=== PATIENT | female | born 1985 | race Caucasian/White ===

== ENCOUNTER → 2020-07-25 15:04 | Outpatient (BNVA) | payer OTHER, SELFPAY | PROVIDERS: PCP Nurse Practitioner Family; Referring Provider Nurse Practitioner Family; Visit Provider Nurse Practitioner Family | DX: K51.90 Ulcerative colitis, unspecified, without complications (principal); Z79.899 Other long term (current) drug therapy; Z98.890 Other specified postprocedural states | CPT/HCPCS: 99214 ==

== ENCOUNTER → 2021-01-30 12:59 | Outpatient (BNVA) | payer OTHER, SELFPAY | PROVIDERS: PCP Nurse Practitioner Family; Visit Provider Nurse Practitioner ==

== ENCOUNTER 2021-05-01 08:36 | Outpatient (REF) | payer OTHER, SELFPAY ==
[2021-05-01 11:25] LABS: MANUAL DIFF FLAG NO
[2021-05-01 11:35] LABS: Basophils Percent Auto 0.5 % (0-2); Eosinophils Absolute Auto 0.1 X10*3/uL (0.0-0.4); Eosinophils Percent Auto 2.1 % (0-4); Hematocrit 39.1 % (37-47); Hemoglobin 12.8 g/dl (12.0-16.0); Imm Gran Abs Auto 0.05 X10*3/uL (0.00-0.03); Imm Gran Pct Auto 0.8 % (0.0-0.4); Lymphocytes Absolute Auto 1.5 X10*3/uL (1.2-4.9); Lymphocytes Percent Auto 24.5 % (20-40); Mean Corpuscular HGB Conc 32.7 g/dl (31.0-35.0); Mean Corpuscular Hemoglobin 27.2 pg (27.0-33.0); Mean Corpuscular Volume 83.2 fL (80-98); Mean Platelet Volume 9.6 fL (9.4-12.3); Monocytes Absolute Auto 0.5 X10*3/uL (0.1-1.2); Monocytes Percent Auto 7.9 % (2-11); Neutrophils Percent Auto 64.2 % (45-73); Platelet Count 332 X10*3/uL (160-400); Red Cell Distribution Width 14.1 % (11.0-16.0); White Blood Count 6.2 X10*3/uL (4.8-10.8)
[2021-05-01 11:56] LABS: Alanine Aminotransferase 22 U/L (0-31); Anion Gap 13 (12-20); Aspartate Amino Transferase 22 U/L (5-31); Blood Urea Nitrogen 10 mg/dL (9-16); Calcium 8.9 mg/dL (8.4-10.2); Carbon Dioxide 25 mmol/L (22-29); Chloride 106 mmol/L (96-108); Cholesterol 206 mg/dL; Estimated Glomerular Filt Rate > 60; Glucose Fasting 128 mg/dL (60-99); HDL Cholesterol 52 mg/dL; LDL Cholesterol Calculated 139 mg/dl; Sodium 139 mmol/L (135-145); Triglycerides 75 mg/dL
[2021-05-01 12:00] LABS: TSH reflex Free T4 1.12 uIU/mL (0.32-4.0)
== END 2021-05-01 08:37 | disposition home or self-care (01) ==
LOC: HO.HMGCLDS 08:36
PROVIDERS: PCP Internal Medicine; Visit Provider Internal Medicine
DX: Z00.01 Encounter for general adult medical examination with abnormal findings (principal); E66.01 Morbid (severe) obesity due to excess calories; K51.90 Ulcerative colitis, unspecified, without complications; I10 Essential (primary) hypertension
CPT/HCPCS: 36415; 80048; 80061; 84443; 84450; 84460; 85025

== ENCOUNTER 2021-05-19 08:54 | Outpatient (REF) | payer OTHER, SELFPAY ==
[2021-05-19 11:43] LABS: Estimated Average Glucose 123 mg/dL; Hemoglobin A1C 136.5053 umol/L; Hemoglobin A1c % 5.9 %
== END 2021-05-19 08:55 | disposition home or self-care (01) ==
LOC: HO.HMGCLDS 08:54
PROVIDERS: Visit Provider Nurse Practitioner Family
DX: R73.01 Impaired fasting glucose (principal)
CPT/HCPCS: 36415; 83036

== ENCOUNTER → 2021-06-20 14:06 | Outpatient (BNVA) | payer OTHER, SELFPAY | PROVIDERS: PCP Internal Medicine; Referring Provider Internal Medicine; Visit Provider Physician Assistant | DX: Z01.818 Encounter for other preprocedural examination (principal); E66.01 Morbid (severe) obesity due to excess calories; K51.90 Ulcerative colitis, unspecified, without complications; Z68.42 Body mass index [BMI] 45.0-49.9, adult | CPT/HCPCS: 99202 ==

== ENCOUNTER 2021-07-03 07:50 | Outpatient (REF) | payer OTHER, SELFPAY ==
[2021-07-03 08:38] LABS: MANUAL DIFF FLAG NO
[2021-07-03 08:50] LABS: Basophils Percent Auto 0.5 % (0-2); Eosinophils Absolute Auto 0.1 X10*3/uL (0.0-0.4); Eosinophils Percent Auto 1.7 % (0-4); Hematocrit 37.9 % (37-47); Hemoglobin 12.5 g/dl (12.0-16.0); Imm Gran Abs Auto 0.04 X10*3/uL (0.00-0.03); Imm Gran Pct Auto 0.6 % (0.0-0.4); Lymphocytes Absolute Auto 1.4 X10*3/uL (1.2-4.9); Lymphocytes Percent Auto 21.2 % (20-40); Mean Corpuscular Hemoglobin 27.5 pg (27.0-33.0); Mean Corpuscular Volume 83.5 fL (80-98); Mean Platelet Volume 9.6 fL (9.4-12.3); Monocytes Absolute Auto 0.6 X10*3/uL (0.1-1.2); Neutrophils Absolute Auto 4.4 X10*3/uL (2.0-8.3); Platelet Count 311 X10*3/uL (160-400); Red Blood Count 4.54 X10*6/uL (4.20-5.50); Red Cell Distribution Width 13.8 % (11.0-16.0); White Blood Count 6.6 X10*3/uL (4.8-10.8)
[2021-07-03 09:02] LABS: Alanine Aminotransferase 21 U/L (0-31); Albumin Level 4.2 g/dL (3.5-5.0); Alkaline Phosphatase 81 U/L (39-117); Anion Gap 10 (12-20); Aspartate Amino Transferase 15 U/L (5-31); Bilirubin Total 0.4 mg/dL (0.0-1.0); Blood Urea Nitrogen 18 mg/dL (9-16); C Reactive Protein 0.97 mg/dL (< or = 0.50); Calcium 9.2 mg/dL (8.4-10.2); Carbon Dioxide 24 mmol/L (22-29); Chloride 109 mmol/L (96-108); Cholesterol 168 mg/dL; Estimated Glomerular Filt Rate > 60; Glucose Random 118 mg/dL (60-115); HDL Cholesterol 44 mg/dL; Iron 45 mcg/dL (30-160); LDL Cholesterol Calculated 109 mg/dl; Percent Iron Saturation 13 % (15-50); Sodium 138 mmol/L (135-145); Total Iron Binding Capacity 353 mcg/dL (228-428); Total Protein 6.8 g/dL (6.5-8.0); Triglycerides 79 mg/dL; Unsaturated Iron Binding 308 ug/dL
[2021-07-03 09:22] LABS: Estimated Average Glucose 117 mg/dL; Hemoglobin A1c % 5.7 %
[2021-07-03 09:27] LABS: TSH reflex Free T4 1.92 uIU/mL (0.32-4.0); Vitamin D 25-OH Total 23.4 ng/mL (>30)
[2021-07-03 09:34] LABS: Ferritin 33 ng/mL (10-122)
[2021-07-03 09:37] LABS: Folate 7.1 ng/mL (> or = 4.0); Vitamin B12 598 pg/mL (200-900)
[2021-07-05 06:11] LABS: Insulin Level Total 11.6 uIU/mL
[2021-07-05 11:01] LABS: Calcium (PTHI) 9.2 mg/dL (8.6-10.2); PTHI 35 pg/mL (14-64)
[2021-07-06 06:26] LABS: Zinc 83 mcg/dL (60-130)
[2021-07-08 13:46] LABS: Vitamin B1 8 nmol/L (8-30)
[2021-07-09 15:57] LABS: Vitamin A 45 mcg/dL (38-98)
== END 2021-07-03 07:51 | disposition home or self-care (01) ==
LOC: HO.LAB 07:50
PROVIDERS: Visit Provider Physician Assistant
DX: Z01.818 Encounter for other preprocedural examination (principal); E66.01 Morbid (severe) obesity due to excess calories
CPT/HCPCS: 36415; 80053; 80061; 82306; 82607; 82728; 82746; 83036; 83525; 83540; 83970; 84425; 84443; 84590; 84630; 85025; 86140

== ENCOUNTER → 2021-07-06 07:56 | Outpatient (REF) | payer OTHER, SELFPAY ==
--- NOTE | ~2021-07-06 | XR_ITS ---
EXAMINATION: XR CHEST CLINICAL INFORMATION: Obesity COMPARISON: None TECHNIQUE: 2 views of the chest were obtained. FINDINGS: No significant abnormality is noted involving the heart, lungs, mediastinum, bony thorax or soft tissues. XR/XR chest 2V IMPRESSION: Unremarkable examination.
--- NOTE | 2021-07-06 08:00 | ECG_ITS ---
Test Reason : e66.01 Blood Pressure : / mmHG Vent. Rate : 069 BPM Atrial Rate : 069 BPM P-R Int : 208 ms QRS Dur : 078 ms QT Int : 368 ms P-R-T Axes : 059 005 032 degrees QTc Int : 394 ms Normal sinus rhythm Normal ECG No previous ECGs available Referred By: Anahi Miles Electronically Signed By:DIANE JOHNSON
== END ==
LOC: HO.CARD 07:56
PROVIDERS: PCP Internal Medicine; Visit Provider Physician Assistant
DX: Z01.818 Encounter for other preprocedural examination (principal); E66.01 Morbid (severe) obesity due to excess calories
CPT/HCPCS: 71046; 93005

== ENCOUNTER 2021-07-17 | Outpatient (REF) | payer OTHER, SELFPAY ==
[2021-07-18 11:05] LABS: H Pylori Breath Test Negative (Negative)
== END 2021-07-17 00:01 | disposition home or self-care (01) ==
LOC: HO.LNP
PROVIDERS: Visit Provider Physician Assistant
DX: Z01.818 Encounter for other preprocedural examination (principal); E66.01 Morbid (severe) obesity due to excess calories
CPT/HCPCS: 83013

== ENCOUNTER → 2021-07-17 08:20 | Outpatient (BNVA) | payer OTHER, SELFPAY | PROVIDERS: PCP Nurse Practitioner Family; Visit Provider Nurse Practitioner | DX: Z12.11 Encounter for screening for malignant neoplasm of colon (principal); K51.90 Ulcerative colitis, unspecified, without complications; E66.01 Morbid (severe) obesity due to excess calories; E73.9 Lactose intolerance, unspecified | CPT/HCPCS: 99211 ==

== ENCOUNTER → 2021-07-19 08:07 | Outpatient (BNVA) | payer OTHER, SELFPAY | PROVIDERS: PCP Internal Medicine; Visit Provider Dietitian, Registered | DX: E66.01 Morbid (severe) obesity due to excess calories (principal); Z68.42 Body mass index [BMI] 45.0-49.9, adult | CPT/HCPCS: 97802 ==

== ENCOUNTER → 2021-07-20 08:03 | Outpatient (BNVA) | payer OTHER, SELFPAY | PROVIDERS: PCP Internal Medicine; Visit Provider Surgery ==

== ENCOUNTER 2021-07-31 08:01 | Outpatient (REF) | payer OTHER, SELFPAY ==
--- NOTE | ~2021-07-31 | US_ITS ---
EXAMINATION: US COMPLETE ABDOMEN WITH LIVER ELASTOGRAPHY CLINICAL INFORMATION: Morbid obesity COMPARISON: May 01, 2012 TECHNIQUE: Real-time imaging of the abdominal viscera. Noninvasive ultrasound liver fibrosis assessment is performed using Sumanth ElastPQ point quantification shear wave elastography (pSWE) with a C5-2 MHz transducer. Multiple elastography samples are obtained. FINDINGS: PANCREAS: Normal. The visualized pancreatic head and body are normal in appearance. The remainder of the pancreas is obscured from visualization by the overlying bowel gas. ABDOMINAL AORTA: The proximal, middle, and distal aortic segments are normal in caliber. INFERIOR VENA CAVA: Visualized portions are normal. LIVER: Normal. The liver demonstrates normal size, contour and echogenicity. No focal lesion or intrahepatic biliary duct dilatation. The right lobe measures 16.9 cm in length. The left lobe measures 12.2 cm in length. Portal flow is hepatopedal Shear wave liver elastography median stiffness is 1.48 m/s (reference: normal median stiffness is 1.3 m/s or less). IQR/median stiffness to assess sampling precision is 0.19 (reference: good quality data set is IQR/median stiffness of 0.15 or less). GALLBLADDER: Normal. The gallbladder is physiologically distended without evidence of stones, sludge, polyps, wall thickening or pericholecystic fluid. COMMON BILE DUCT: Normal in caliber measuring 0.3 cm in diameter. RIGHT KIDNEY: Normal. No hydronephrosis. No renal calculi or focal parenchymal lesions. The kidney measures 11.4 cm in maximum dimension. Previously noted right lower pole 3 mm echogenic focus is not appreciated on provided imaging. LEFT KIDNEY: Normal. No hydronephrosis. No renal calculi or focal parenchymal lesions. The kidney measures 10.7 cm in maximum dimension. SPLEEN: Normal. The spleen measures 10.0 cm in maximum dimension. FREE FLUID: None. US/US abdomen comp w elastography IMPRESSION: 1. No significant ultrasound abnormality appreciated. 2. Liver elastography: Although measurements appear to rule out compensated advanced chronic liver disease, there is statistical variability of the sampling which decreases accuracy. REFERENCE: Society of Radiologists in Ultrasound Liver Stiffness Thresholds (2019): LIVER STIFFNESS THRESHOLDS: *Liver Stiffness equal or less than 1.3 m/s: High probability of being normal. *Liver Stiffness less than 1.7 m/s: In the absence of other known clinical signs, rules out compensated advanced chronic liver disease. *Liver Stiffness 1.7-2.1 m/s: Suggestive of compensated advanced chronic liver disease but need further test for confirmation. *Liver Stiffness over 2.1 m/s: Rules in compensated advanced chronic liver disease. *Liver Stiffness over 2.4 m/s: Suggestive of clinically significant portal hypertension. QUALITY OF DATA SET: *IQR/Median value equal or less than 0.15 implies a quality data set. *IQR/Median value over 0.15 implies a poor quality data set. SIGNIFICANT CHANGE FROM PRIOR EXAM: Significant change if liver stiffness measurement is 10% or greater from prior exam. OTHER CONSIDERATIONS: The stage of liver fibrosis may be overestimated in the setting of acute hepatitis, liver inflammation, elevated liver function tests, hepatic vascular congestion, obstructive cholestasis, non-fasting state, and infiltrative diseases such as amyloidosis and lymphoma. In some patients with NAFLD, the liver stiffness thresholds for compensated advanced chronic liver disease may be lower. In causes other than viral hepatitis and NAFLD, liver stiffness thresholds are not well established.
--- NOTE | ~2021-07-31 | FL_ITS ---
EXAMINATION: XR GI SERIES CLINICAL INFORMATION: Morbid/severe obesity due to excess calories. COMPARISON: None TECHNIQUE: Routine upper GI air-contrast study was performed in upright and lying position. FINDINGS: Following oral administration of thick barium and effervescent granules, there is normal propagation of bolus from the oral cavity through the pharynx, esophagus into stomach without any evidence of obstruction, narrowing or stricture. On placing patient supine and prone lying, there is no gastroesophageal reflux or hiatal hernia. The course, caliber and peristalsis of the stomach, duodenal bulb and the sweep are normal. The mucosal pattern of the stomach is normal. FLUOROSCOPY TIME: 1.4 minutes DOSE AREA PRODUCT: 28.215 uGy-m2 (microgray-meter squared) FL/FL upper GI series IMPRESSION: Unremarkable upper GI air-contrast study.
== END 2021-07-31 08:02 | disposition home or self-care (01) ==
LOC: HO.US 08:01
PROVIDERS: Visit Provider Surgery
DX: Z01.818 Encounter for other preprocedural examination (principal); E66.01 Morbid (severe) obesity due to excess calories; K21.9 Gastro-esophageal reflux disease without esophagitis
CPT/HCPCS: 74240; 76705; 76981

== ENCOUNTER → 2021-08-16 08:04 | Outpatient (BNVA) | payer OTHER, SELFPAY | PROVIDERS: PCP Internal Medicine; Referring Provider Surgery; Visit Provider Dietitian, Registered | DX: E66.9 Obesity, unspecified (principal); Z68.42 Body mass index [BMI] 45.0-49.9, adult | CPT/HCPCS: 97803 ==

== ENCOUNTER → 2021-08-17 08:16 | Outpatient (BNVA) | payer OTHER, SELFPAY | PROVIDERS: PCP Internal Medicine; Visit Provider Surgery ==

== ENCOUNTER → 2021-09-17 08:14 | Outpatient (BNVA) | payer OTHER, SELFPAY | PROVIDERS: PCP Internal Medicine; Visit Provider Surgery ==

== ENCOUNTER → 2021-09-28 08:21 | Outpatient (BNVA) | payer OTHER, SELFPAY | PROVIDERS: PCP Internal Medicine; Visit Provider Dietitian, Registered ==

== ENCOUNTER → 2021-10-01 08:04 | Outpatient (BNVA) | payer OTHER, SELFPAY | PROVIDERS: PCP Internal Medicine; Referring Provider Surgery; Visit Provider Dietitian, Registered | DX: E66.01 Morbid (severe) obesity due to excess calories (principal); Z68.42 Body mass index [BMI] 45.0-49.9, adult | CPT/HCPCS: 97803 ==

== ENCOUNTER → 2021-10-22 07:28 | Outpatient (BNVA) | payer BC, SELFPAY | PROVIDERS: PCP Internal Medicine; Visit Provider Surgery ==

== ENCOUNTER 2022-01-25 10:20 | Outpatient (REF) | payer BC, SELFPAY ==
[2022-01-25 11:43] LABS: Appearance Urine CLOUDY; Color Urine ORANGE; Leukocyte Esterase Urine 3+ (NEG); Nitrite Urine POS (NEG); PH 6.5 (5.0-8.0); Specific Gravity - Urine 1.015 (1.005-1.025); UACC Culture Trigger YES; Urine Blood NEG (NEG)
[2022-01-25 11:59] LABS: Bacteria Urine 3+ /LPF; RBC Urine 0 /HPF (0); Squamous Epithelial Cell Urine 2+ /LPF; WBC Urine 50-75 /HPF (0-4)
== END 2022-01-25 10:21 | disposition home or self-care (01) ==
LOC: HO.HMGCLDS 10:20
PROVIDERS: PCP Internal Medicine; Visit Provider Internal Medicine
DX: R30.0 Dysuria (principal)
CPT/HCPCS: 81001; 87086; 87088; 87186

== ENCOUNTER → 2022-04-10 09:07 | Outpatient (BNVA) | payer BC, SELFPAY | PROVIDERS: PCP Internal Medicine; Visit Provider Advanced Practice Midwife | DX: O34.219 Maternal care for unspecified type scar from previous cesarean delivery (principal); Z32.01 Encounter for pregnancy test, result positive; O99.612 Diseases of the digestive system complicating pregnancy, second trimester; K51.90 Ulcerative colitis, unspecified, without complications; Z3A.27 27 weeks gestation of pregnancy | CPT/HCPCS: 81025 ==

== ENCOUNTER 2022-04-19 11:25 | Outpatient (REF) | payer BC, MEDICAID, SELFPAY ==
--- NOTE | ~2022-04-19 | US_ITS ---
EXAMINATION: OBSTETRICAL ULTRASOUND, FIRST TRIMESTER HISTORY: 36-year-old with uncertain LMP Viability LMP: 12/25/2021, uncertain COMPARISON: None TECHNIQUE: Real time transabdominal imaging with color and M-mode Doppler. FINDINGS: A single, live IUP CRL of 37.9 mm c/w 10.5wks is noted. Heart Rate: 167 beats per minute. Too early for the NT evaluation. However the nuchal area appeared grossly normal. Both maternal ovaries are seen and appear normal. GESTATIONAL AGE: 1. GA from LMP: 16.3 wks 2. GA from AUA: 10.5 wks ESTIMATED DATE OF DELIVERY: 1. VICTORINA from LMP: 10/01/2022 2. VICTORINA from AUA: 11/10/2022 US/US OB <= 14 weeks fetus IMPRESSION: 1. Size less than dates, CRL corresponds to 10.5 weeks. Adjust her VICTORINA to 11/10/2022 based on today's examination. 2. Normal ovaries Schedule a follow-up in approximately 2 weeks for the NT evaluation. Thank you very much for this referral. This note was generated with a voice recognition program. Please excuse any errors which may have been overlooked during my review of this note. Sometimes these errors may affect the content or meaning of a given sentence.
== END 2022-04-19 11:26 | disposition home or self-care (01) ==
LOC: HO.US 11:25
PROVIDERS: Visit Provider Advanced Practice Midwife
DX: O34.219 Maternal care for unspecified type scar from previous cesarean delivery (principal); O09.521 Supervision of elderly multigravida, first trimester; Z3A.10 10 weeks gestation of pregnancy
CPT/HCPCS: 76801

== ENCOUNTER 2022-06-13 11:21 | Outpatient (REF) | payer BC, MEDICAID, SELFPAY ==
[2022-06-13 12:42] LABS: C Reactive Protein 1.91 mg/dL (< or = 0.50)
[2022-06-14 11:31] LABS: Campylobacter Not Detected (Not Detect.)
[2022-06-14 11:32] LABS: Adenovirus F 40/41 Not Detected (Not Detect.); Astrovirus Not Detected (Not Detect.); Cyclospora cayetanensis Not Detected (Not Detect.); E. coli EAEC Not Detected (Not Detect.); E. coli EPEC Not Detected (Not Detect.); E. coli ETEC Not Detected (Not Detect.); E. coli STEC Not Detected (Not Detect.); Entamoeba histolytica Not Detected (Not Detect.); Giardia lamblia Not Detected (Not Detect.); Norovirus GI/GII Not Detected (Not Detect.); Plesiomonas shigelloides Not Detected (Not Detect.); Rotavirus A Not Detected (Not Detect.); Salmonella Not Detected (Not Detect.); Sapovirus Not Detected (Not Detect.); Shigella sp./EIEC Not Detected (Not Detect.); Vibrio Not Detected (Not Detect.); Vibrio Cholerae Not Detected (Not Detect.); Yersinia enterocolitica Not Detected (Not Detect.)
[2022-06-14 11:34] LABS: Cryptosporidium Detected (Not Detect.)
[2022-06-19 09:11] LABS: TS Negative Control Passed; TS Panel A 0; TS Panel B 2; TS Positive Control Passed; TSpotTB Negative (Negative)
== END 2022-06-13 11:22 | disposition home or self-care (01) ==
LOC: HO.LAB 11:21
PROVIDERS: PCP Internal Medicine; Visit Provider Nurse Practitioner
DX: Z11.1 Encounter for screening for respiratory tuberculosis (principal); O26.899 Other specified pregnancy related conditions, unspecified trimester; K50.10 Crohn's disease of large intestine without complications
CPT/HCPCS: 36415; 86140; 86481; 87507

== ENCOUNTER 2022-07-01 07:30 | Outpatient (REF) | payer BC, MEDICAID, SELFPAY | END 2022-07-01 07:31 | disposition home or self-care (01) | LOC: HO.LNP 07:30 | PROVIDERS: Visit Provider Nurse Practitioner | DX: Z13.89 Encounter for screening for other disorder (principal) | CPT/HCPCS: 87507 ==

== ENCOUNTER 2022-08-02 07:27 | Outpatient (REF) | payer BC, MEDICAID, SELFPAY ==
[2022-08-02 11:34] LABS: Adenovirus F 40/41 Not Detected (Not Detect.); Astrovirus Not Detected (Not Detect.); Campylobacter Not Detected (Not Detect.); Cryptosporidium Not Detected (Not Detect.); Cyclospora cayetanensis Not Detected (Not Detect.); E. coli EAEC Not Detected (Not Detect.); E. coli EPEC Not Detected (Not Detect.); E. coli ETEC Not Detected (Not Detect.); E. coli STEC Not Detected (Not Detect.); Entamoeba histolytica Not Detected (Not Detect.); Giardia lamblia Not Detected (Not Detect.); Norovirus GI/GII Not Detected (Not Detect.); Plesiomonas shigelloides Not Detected (Not Detect.); Rotavirus A Not Detected (Not Detect.); Salmonella Not Detected (Not Detect.); Sapovirus Not Detected (Not Detect.); Shigella sp./EIEC Not Detected (Not Detect.); Vibrio Not Detected (Not Detect.); Vibrio Cholerae Not Detected (Not Detect.); Yersinia enterocolitica Not Detected (Not Detect.)
== END 2022-08-02 07:28 | disposition home or self-care (01) ==
LOC: HO.LNP 07:27
PROVIDERS: Visit Provider Nurse Practitioner
DX: R19.7 Diarrhea, unspecified (principal)
CPT/HCPCS: 87507

== ENCOUNTER 2022-09-24 13:05 | Outpatient (REF) | payer BC, MEDICAID, SELFPAY ==
[2022-09-24 15:09] LABS: Campylobacter Not Detected (Not Detect.); Plesiomonas shigelloides Not Detected (Not Detect.); Salmonella Not Detected (Not Detect.)
[2022-09-24 15:10] LABS: Adenovirus F 40/41 Not Detected (Not Detect.); Astrovirus Not Detected (Not Detect.); Cryptosporidium Not Detected (Not Detect.); Cyclospora cayetanensis Not Detected (Not Detect.); E. coli EAEC Not Detected (Not Detect.); E. coli EPEC Not Detected (Not Detect.); E. coli ETEC Not Detected (Not Detect.); E. coli STEC Not Detected (Not Detect.); Entamoeba histolytica Not Detected (Not Detect.); Giardia lamblia Not Detected (Not Detect.); Norovirus GI/GII Not Detected (Not Detect.); Rotavirus A Not Detected (Not Detect.); Sapovirus Not Detected (Not Detect.); Shigella sp./EIEC Not Detected (Not Detect.); Vibrio Not Detected (Not Detect.); Vibrio Cholerae Not Detected (Not Detect.); Yersinia enterocolitica Not Detected (Not Detect.)
[2022-09-24 15:22] LABS: CDiff Gene PCR NEGATIVE (Negative)
[2022-10-02 19:19] LABS: Lactoferrin, Fecal, Quant. 211.78 mcg/mL (<7.25)
== END 2022-09-24 13:06 | disposition home or self-care (01) ==
LOC: HO.LNP 13:05
PROVIDERS: Visit Provider Internal Medicine Gastroenterology
DX: A07.2 Cryptosporidiosis (principal); K51.90 Ulcerative colitis, unspecified, without complications; R19.7 Diarrhea, unspecified
CPT/HCPCS: 83631; 87493; 87507

== ENCOUNTER → 2022-10-18 08:47 | Outpatient (BNVA) | payer BC, MEDICAID, SELFPAY | PROVIDERS: PCP Internal Medicine; Visit Provider Internal Medicine Gastroenterology | DX: Z13.89 Encounter for screening for other disorder (principal) ==

== ENCOUNTER 2022-10-25 11:23 | Outpatient (REF) | payer BC, MEDICAID, SELFPAY | END 2022-10-25 11:24 | disposition home or self-care (01) | LOC: HO.LNP 11:23 | PROVIDERS: Visit Provider Nurse Practitioner Family | DX: L73.2 Hidradenitis suppurativa (principal); Z76.89 Persons encountering health services in other specified circumstances | CPT/HCPCS: 87070; 87205 ==

== ENCOUNTER → 2022-11-15 09:09 | Outpatient (BNVA) | payer BC, MEDICAID, SELFPAY | PROVIDERS: PCP Internal Medicine; Referring Provider Internal Medicine; Visit Provider Internal Medicine Gastroenterology | DX: Z13.89 Encounter for screening for other disorder (principal) ==

== ENCOUNTER → 2023-03-21 08:57 | Outpatient (BNVA) | payer BC, MEDICAID, SELFPAY | PROVIDERS: PCP Internal Medicine; Visit Provider Internal Medicine Gastroenterology ==

== ENCOUNTER 2023-03-28 12:13 | Outpatient (REF) | payer BC, MEDICAID, SELFPAY ==
[2023-03-28 12:25] LABS: MANUAL DIFF FLAG NO
[2023-03-28 13:00] LABS: Basophils Percent Auto 0.6 % (0-2); Eosinophils Absolute Auto 0.3 X10*3/uL (0.0-0.4); Eosinophils Percent Auto 4.6 % (0-4); Hematocrit 35.3 % (37.0-47.0); Hemoglobin 11.3 g/dl (12.0-16.0); Imm Gran Abs Auto 0.03 X10*3/uL (0.00-0.03); Imm Gran Pct Auto 0.4 % (0.0-0.4); Lymphocytes Absolute Auto 1.5 X10*3/uL (1.2-4.9); Mean Corpuscular Hemoglobin 24.8 pg (27.0-33.0); Mean Corpuscular Volume 77.6 fL (80.0-98.0); Mean Platelet Volume 9.3 fL (9.4-12.3); Monocytes Absolute Auto 0.7 X10*3/uL (0.1-1.2); Monocytes Percent Auto 9.4 % (2-11); Neutrophils Absolute Auto 4.4 x10*3/uL (2.0-8.3); Platelet Count 348 X10*3/uL (160-400); Red Blood Count 4.55 X10*6/uL (4.20-5.50); Red Cell Distribution Width 16.8 % (11.0-16.0); White Blood Count 6.9 X10*3/uL (4.8-10.8)
[2023-03-28 13:42] LABS: Alanine Aminotransferase 14 U/L (0-31); Albumin Level 3.9 g/dL (3.5-5.0); Alkaline Phosphatase 86 U/L (39-117); Anion Gap 12 (12-20); Aspartate Amino Transferase 13 U/L (5-31); Bilirubin Total 0.5 mg/dL (0.0-1.0); Blood Urea Nitrogen 6 mg/dL (9-16); C Reactive Protein 3.37 mg/dL (< or = 0.50); Calcium 9.3 mg/dL (8.4-10.2); Carbon Dioxide 25 mmol/L (22-29); Chloride 107 mmol/L (96-108); Estimated Glomerular Filt Rate > 60; Glucose Random 95 mg/dL (60-115); Potassium 4.2 mmol/L (3.3-5.1); Sodium 140 mmol/L (135-145)
== END 2023-03-28 12:14 | disposition home or self-care (01) ==
LOC: HO.LAB 12:13
PROVIDERS: PCP Internal Medicine; Visit Provider Internal Medicine Gastroenterology
DX: K75.81 Nonalcoholic steatohepatitis (NASH) (principal); K51.90 Ulcerative colitis, unspecified, without complications
CPT/HCPCS: 36415; 80053; 85025; 86140

== ENCOUNTER 2023-04-21 | Outpatient (REF) | payer BC, MEDICAID, SELFPAY ==
[2023-04-21 13:39] LABS: CDiff Gene PCR NEGATIVE (Negative)
[2023-04-21 14:50] LABS: Adenovirus F 40/41 Not Detected (Not Detect.); Astrovirus Not Detected (Not Detect.); Campylobacter Not Detected (Not Detect.); Cryptosporidium Not Detected (Not Detect.); Cyclospora cayetanensis Not Detected (Not Detect.); E. coli EAEC Not Detected (Not Detect.); E. coli EPEC Not Detected (Not Detect.); E. coli ETEC Not Detected (Not Detect.); E. coli STEC Not Detected (Not Detect.); Entamoeba histolytica Not Detected (Not Detect.); Giardia lamblia Not Detected (Not Detect.); Norovirus GI/GII Not Detected (Not Detect.); Plesiomonas shigelloides Not Detected (Not Detect.); Rotavirus A Not Detected (Not Detect.); Salmonella Not Detected (Not Detect.); Sapovirus Not Detected (Not Detect.); Shigella sp./EIEC Not Detected (Not Detect.); Vibrio Not Detected (Not Detect.); Vibrio Cholerae Not Detected (Not Detect.); Yersinia enterocolitica Not Detected (Not Detect.)
== END 2023-04-21 00:01 | disposition home or self-care (01) ==
LOC: HO.LNP
PROVIDERS: Visit Provider Internal Medicine Gastroenterology
DX: K51.90 Ulcerative colitis, unspecified, without complications (principal); K75.81 Nonalcoholic steatohepatitis (NASH); A07.2 Cryptosporidiosis
CPT/HCPCS: 83631; 87493; 87507

== ENCOUNTER 2023-05-30 10:51 | Outpatient (AMB) | payer BC, MEDICAID, SELFPAY ==
--- NOTE | 2023-05-30 10:59 | MHC.OFFVIS ---
Intake Vital Signs 05/30/23 11:00 Height 5 ft 1 in Weight 233 lb BMI 44.0 BP 113/56 L Blood Pressure Location Lt brachial Position Sitting Pulse 65 Intake Visit Reasons: 6 week follow up Intake Note: Patient follow up for Patient denies any GI issues. 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 VITAL SIGNS:see workflow HEENT: Nonicteric sclerae, PERRLA, EOMI. Oropharynx clear. Moist mucous membranes. Conjunctivae appear well perfused. No thyroid mass. CHEST: Chest wall is nontender. HEART: Regular rate and rhythm without murmurs. LUNGS: Clear to auscultation bilaterally. ABDOMEN: Soft, positive bowel sounds,no abdominal tenderness, no organomegaly.no flank tenderness SKIN: No rash, no excessive bruising, petechiae, or purpura. NEUROLOGIC: Cranial nerves II-XII intact without motor/sensory deficit. A/P: 1/UC--controlled with switch to apriso PLAN: 1/ cont apriso, 2/ recheck fecal lactoferrin and cbc, crp 3/?colonoscopy in near future ? [facility] Medical History delivery delivered section wound complication Colon cancer screening Morbid obesity Ulcerative colitis Surgical History History of salpingectomy Hx of colonoscopy No pertinent past surgical history Family History Family/Other No problems noted. Maternal Aunt Colon cancer Mother Family history of early CAD Father No problems noted. Brother No problems noted. Brother No problems noted. Sister No problems noted. Sister No problems noted. Sister No problems noted. Son No problems noted. Son No problems noted. Daughter No problems noted. Social History Alcohol intake: current Alcohol intake frequency: holidays/special occasions only Patient Tobacco Use Status: Never used Tobacco Female Reproductive History Menstrual Age of Menarche: 11 Assessment & Plan Assessment & Plan (1) Ulcerative colitis: Code(s): K51.90 - Ulcerative colitis, unspecified, without complications Qualifiers: Ulcerative colitis location: unspecified ulcerative colitis location Digestive disease complication type: without complication Qualified Code(s): K51.90 - Ulcerative colitis, unspecified, without complications Orders: Orders Lactoferrin, Fecal, Quant. Today K51.50 - Left sided colitis without complications, K51.90 - Ulcerative colitis, unspecified, without complications Comprehensive Met. Panel Today K51.90 - Ulcerative colitis, unspecified, without complications, K75.81 - Nonalcoholic steatohepatitis (MELTON) C Reactive Protein Today K51.90 - Ulcerative colitis, unspecified, without complications Complete Blood Count Auto Diff Today K51.90 - Ulcerative colitis, unspecified, without complications Coding Level of Care Code Est Pt Level 3 (44972) Diagnoses Ulcerative colitis K51.90 Ulcerative colitis location: unspecified ulcerative colitis location Digestive disease complication type: without complication
[2023-05-30 11:00] VITALS: BP 113/56; PULSE 65; BMI 44.0
== END 2023-05-30 11:09 | disposition home or self-care (01) ==
PROVIDERS: PCP Internal Medicine; Visit Provider Internal Medicine Gastroenterology
DX: K51.90 Ulcerative colitis, unspecified, without complications (principal)
CPT/HCPCS: 99213

== ENCOUNTER → 2023-05-30 10:51 | Outpatient (BNVA) | payer BC, MEDICAID, SELFPAY | PROVIDERS: PCP Internal Medicine; Visit Provider Internal Medicine Gastroenterology ==

== ENCOUNTER 2023-07-15 15:06 | Outpatient (AMB) | payer BC, MEDICAID, SELFPAY ==
--- NOTE | 2023-07-15 15:08 | A.OFFPC_ITS ---
Vital Signs 3 07/15/23 15:09 Height 5 ft 1 in Weight 236 lb 8 oz BMI 44.7 BP 104/58 L Blood Pressure Location Rt brachial Position Sitting Pulse 71 Pulse Source Pulse Oximeter Pulse Oximetry (%) 97 Oxygen Delivery Method Room Air Intake Visit Reasons: Annual PE Allergies No Known Allergies Allergy (Verified 07/15/23 15:14) Medication List - Last Reconciled 07/15/23 by Cassie Retana MD mesalamine ER (Apriso) 1.5 grams (4 x 0.375 gram) PO QAM Tobacco use date assessed: 07/15/23 Dental Screening Dental Screen Date: 07/15/23 Did you have a dental visit in the last 12 months?: Yes Did you have a dental problem in the last 6 months where you did not have access to dental care?: No Was dental information given to patient?: Patient has dentist HPI Annual PE 2 HPI0 Details Patient is 38-year-old female came in today for physical examination Patient have developed a cyst in her back left side scalp area oblong in size which has been getting bigger she tells me she has had this cyst for a while. Patient would like that be removed as it is causing discomfort now. She has an OBGYN breast exam and Pap smears through OBGYN Patient have ulcerative colitis which is being managed by Dr Velazquez [facility] I see there are some labs ordered already through Gastroenterology I have added thyroid test iron and vitamin-D to the labs. Patient has a BMI of 44.7 she is morbidly obese trying to lose weight. [facility] Medical History delivery delivered section wound complication Morbid obesity Colon cancer screening Ulcerative colitis Surgical History History of salpingectomy Hx of colonoscopy No pertinent past surgical history Family History Family/Other No problems noted. Maternal Aunt Colon cancer Mother Family history of early CAD Father No problems noted. Brother No problems noted. Brother No problems noted. Sister No problems noted. Sister No problems noted. Sister No problems noted. Son No problems noted. Son No problems noted. Daughter No problems noted. Social History Housing: Apartment Alcohol intake: current Alcohol intake frequency: holidays/special occasions only Patient Tobacco Use Status: Never used Tobacco e-Cigarette/Vaping Use: Never Used service: No Current occupational status: employed Cognitive needs: No Hearing needs: No Vision needs: No Female Reproductive History Menstrual Age of Menarche: 11 Questionnaire PHQ-9 Over the last 2 weeks, how often have you been bothered by any of the following problems? 1. Little interest or pleasure in doing things: not at all 2. Feeling down, depressed, or hopeless: not at all 3. Trouble falling or staying asleep, or sleeping too much: several days 4. Feeling tired or having little energy: several days 5. Poor appetite or overeating: not at all 6. Feeling bad about yourself - or that you are a failure or have let yourself or your family down: not at all 7. Trouble concentrating on things, such as reading the newspaper or watching television: not at all 8. Moving or speaking so slowly that other people could have noticed. Or the opposite - being so fidgety or restless that you have been moving around a lot more than usual: not at all 9. Thoughts that you would be better off or of hurting yourself in some way: not at all Total score: 2 Depression Screening Interpretation: Negative Depression Screening Done: Yes 61010 - PHQ-9 Billing: Yes Source: Developed by Drs. Farhad Gusman, Nelly Champagne, Stanley Miranda and colleagues, with an educational tatum from [employer]. Thrive Questionnaire Date Thrive assessed: 07/15/23 I am a: Patient What is your living situation today?: I have a steady place to live Within the past 12 months, did the food you bought not last and you didn't have the money to get more?: Sometimes True Within the past 12 months, did you worry whether your food would run out before you got money to buy more?: Sometimes True Do you have trouble paying for medicines?: Yes Do you have trouble getting transportation to medical appointments?: No Do you have trouble paying your heating and electricity bill?: No Do you have trouble taking care of your child, family member or friend?: No Do you have trouble with day-to-day activities such as bathing, preparing meals, shopping, managing finances, etc.?: No Are you currently unemployed and looking for a job?: No Are you interested in more education?: No AUDIT C Alcohol Use Questionnaire (AUDIT-C) 1. How often do you have a drink containing alcohol?: Never 3. How often do you have six or more drinks on one occasion?: Never Total Score: 0 Score Reviewed/Action Taken: Yes MARLEEN-7 AMB Questionnaire MARLEEN-7 Date MARLEEN - 7 assessed: 07/15/23 Feeling nervous, anxious, or on edge: 0 = Not at all Not being able to stop or control worryin = Not at all Worrying too much about different things: 0 = Not at all Trouble relaxin = Not at all Being so restless that it is hard to sit still: 0 = Not at all Becoming easily annoyed or irritable: 1 = Several days Feeling afraid as if something awful might happen: 0 = Not at all Total MARLEEN-7 score (0-4 normal; 5-9 mild; 10-14 moderate; 15-21 severe): 1 Source: Developed by Drs. Farhad Gusman, Nelly Champagne, Stanley Miranda and colleagues, with an educational tatum from [employer]. MARLEEN-7 Assessment Billing MARLEEN-7 Assessment Tool: MARLEEN-7 Assessment 58077 Review of Systems Const Denies chills, Denies fever(s) and Denies headache(s) Eyes Denies blurry vision ENT Denies headache(s), Denies nasal discharge, Denies nasal obstruction, Denies odynophagia and Denies sinus pain Card Denies chest pain at rest and Denies chest pain with activity Resp Denies cough and Denies hemoptysis GI Denies diarrhea, Denies odynophagia, Denies vomiting and Denies hematemesis Reports as per HPI Musc Denies abnormal gait Skin/Breast Reports as per HPI Neuro Denies Neuro-related abnormal movements, Denies Abnormal speech present, Denies abnormal gait, Denies headache(s) and Denies Sensory deficit (Neuro) Psych Denies mood swings and Denies paranoia Endo Reports as per HPI Brad/Lymph Reports as per HPI Aller/Immun Reports as per HPI Physical exam (Primary Care) Vital Signs: Last Vital Signs Pulse 71 07/15/23 15:09 BP 104/58 L 07/15/23 15:09 Pulse Ox 97 07/15/23 15:09 Oxygen Delivery Method Room Air 07/15/23 15:09 BMI result Body Mass Index 44.7 Tobacco/Smoking Status: Tobacco use Status Tobacco use date assessed 07/15/23 07/15/23 15:14 Patient Tobacco Use Status Never used Tobacco 07/15/23 15:14 e-Cigarette/Vaping Use Never Used 07/15/23 15:14 Depression Screening Interpretation: Negative Thrive Assessment: Date of Thrive Assessment Date Thrive assessed 04/23/21 07/15/23 15:14 Const General: cooperative, comfortable and no acute distress Orientation/consciousness: patient oriented x3 HENMT Head: Yes normocephalic and Yes atraumatic Head images: 2 1. Mcleod fluctuant cyst left posterior scalp, nontender no skin inflammation or signs of infection. Eyes General: appearance normal, both eyes and all related structures Pupils: Equal, round and reactive pupils present EOM: EOMs intact bilaterally Neck Neck: Yes supple and No lymphadenopathy Thyroid: Thyroid normal Lymphatic: no lymphadenopathy noted Resp Effort & Inspection: normal respiratory effort and able to speak in complete sentences Auscultation: clear to auscultation bilaterally Cardio Heart sounds: S1 normal heart sound present and S2 normal heart sound present GI Palpation (GI): Soft to palpation and nontender Auscultation: normal bowel sounds General: Yes no CVA tenderness Back/Spine/Pelvis Back: no CVA tenderness Skin General skin exam: elasticity normal and turgor normal Neuro General: patient oriented x3 and gait normal Cranial nerves: Yes Equal, round and reactive pupils present Speech: No Abnormal speech present Sensory Exam: No Sensory deficit (Neuro) Coordination: tandem gait normal and Romberg test negative Extrem General: Yes normal exam except as noted and No edema Assessment and Plan Assessment & Plan (1) Encounter for general adult medical examination with abnormal findings: Code(s): Z00.01 - Encounter for general adult medical examination with abnormal findings (2) Morbid obesity due to excess calories: Code(s): E66.01 - Morbid (severe) obesity due to excess calories (3) Anemia: Code(s): D64.9 - Anemia, unspecified Qualifiers: Anemia type: iron deficiency Iron deficiency anemia type: chronic blood loss Qualified Code(s): D50.0 - Iron deficiency anemia secondary to blood loss (chronic) (4) Dermoid cyst of head: Code(s): D36.7 - Benign neoplasm of other specified sites (5) Ulcerative colitis: Code(s): K51.90 - Ulcerative colitis, unspecified, without complications Qualifiers: Ulcerative colitis location: unspecified ulcerative colitis location D igestive disease complication type: without complication Qualified Code(s): K 51.90 - Ulcerative colitis, unspecified, without complications (6) Vitamin D deficiency: Code(s): E55.9 - Vitamin D deficiency, unspecified Plan Patient is 38-year-old female came in today for physical examination Patient have developed a cyst in her back left side scalp area oblong in size which has been getting bigger she tells me she has had this cyst for a while. Patient would like that be removed as it is causing discomfort now. She has an OBGYN breast exam and Pap smears through OBGYN Patient have ulcerative colitis which is being managed by Dr Velazquez [facility] I see there are some labs ordered already through Gastroenterology I have added thyroid test iron and vitamin-D to the labs. Patient has a BMI of 44.7 she is morbidly obese trying to lose weight. Orders: Orders 2 TSH reflex Free T4 Today E55.9 - Vitamin D deficiency, unspecified, E66.01 - Morbid (severe) obesity due to excess calories Vitamin D 25-OH (D2 and D3) Today E55.9 - Vitamin D deficiency, unspecified, E66.01 - Morbid (severe) obesity due to excess calories Ferritin Today D64.9 - Anemia, unspecified Referrals 2 General Surgery Referral D36.7 - Benign neoplasm of other specified sites Coding Level of Care Code Est Pt Prev Care 18-39y(55722) Diagnoses Encounter for general adult medical examination with abnormal findings Z00.01 Morbid obesity due to excess calories E66.01 Iron deficiency anemia due to chronic blood loss D50.0 Anemia type: iron deficiency Iron deficiency anemia type: chronic blood loss Dermoid cyst of head D36.7 Ulcerative colitis without complications, unspecified location K51.90 Ulcerative colitis location: unspecified ulcerative colitis location Digestive disease complication type: without complication Vitamin D deficiency E55.9 Additional Codes MARLEEN-7 Assessment Billing - MARLEEN-7 Assessment Tool: MARLEEN-7 Assessment [id number] ([id number])
[2023-07-15 15:09] VITALS: BP 104/58; PULSE 71; O2SAT 97; BMI 44.7
== END 2023-07-15 15:27 | disposition home or self-care (01) ==
PROVIDERS: Visit Provider Internal Medicine
DX: Z00.01 Encounter for general adult medical examination with abnormal findings (principal); E66.01 Morbid (severe) obesity due to excess calories; K51.90 Ulcerative colitis, unspecified, without complications; Z68.42 Body mass index [BMI] 45.0-49.9, adult; D50.0 Iron deficiency anemia secondary to blood loss (chronic); D36.7 Benign neoplasm of other specified sites; E55.9 Vitamin D deficiency, unspecified
CPT/HCPCS: 99395

== ENCOUNTER 2023-07-18 10:22 | Outpatient (REF) | payer BC, MEDICAID, SELFPAY ==
[2023-07-18 11:29] LABS: Alanine Aminotransferase 10 U/L (0-31); Albumin Level 4.1 g/dL (3.5-5.0); Alkaline Phosphatase 82 U/L (39-117); Anion Gap 14 (12-20); Aspartate Amino Transferase 13 U/L (5-31); Bilirubin Total 0.3 mg/dL (0.0-1.0); Blood Urea Nitrogen 9 mg/dL (9-16); C Reactive Protein 1.07 mg/dL (< or = 0.50); Carbon Dioxide 23 mmol/L (22-29); Chloride 107 mmol/L (96-108); Estimated Glomerular Filt Rate > 60; Glucose Random 104 mg/dL (60-115); Sodium 140 mmol/L (135-145); Total Protein 7.2 g/dL (6.5-8.0)
[2023-07-18 11:45] LABS: Ferritin 10 ng/mL (10-122); TSH reflex Free T4 0.96 uIU/mL (0.32-4.0)
== END 2023-07-18 10:23 | disposition home or self-care (01) ==
LOC: HO.LAB 10:22
PROVIDERS: Absent Provider Internal Medicine Gastroenterology; PCP Internal Medicine; Visit Provider Internal Medicine
DX: E55.9 Vitamin D deficiency, unspecified (principal); E66.01 Morbid (severe) obesity due to excess calories; D64.9 Anemia, unspecified; K75.81 Nonalcoholic steatohepatitis (NASH); K51.90 Ulcerative colitis, unspecified, without complications
CPT/HCPCS: 36415; 80053; 82306; 82728; 84443; 85025; 86140

== ENCOUNTER 2023-08-08 09:16 | Emergency (ER) | payer BC, MEDICAID, SELFPAY ==
--- NOTE | ~2023-08-08 | CT_ITS ---
EXAMINATION: CT ABDOMEN AND PELVIS WITH CONTRAST CLINICAL INFORMATION: Abdominal pain COMPARISON: None available. TECHNIQUE: Multidetector volumetric images were obtained from the superior aspect of the liver through the pubic symphysis following administration 85 mL of Omnipaque 350 intravenous contrast. Sagittal and coronal reformatted images were obtained on the technologist's workstation. Oral contrast: No This CT examination was performed using dose optimization techniques as appropriate, variously including the following: *Automated exposure control *Adjustment of mA and/or kV according to patient size (this includes techniques or standardized protocols for targeted exams where dose is matched to indication/reason for exam; i.e. extremities or head) *Use of iterative reconstruction technique DLP: 822 mGy-cm FINDINGS: PRACTICE SUPPORT SPECIALIST: Nonspecific bowel pattern with possible thickened mid abdominal small bowel loops. LUNG BASES: The visualized lung bases are unremarkable. LIVER, GALLBLADDER, AND BILIARY TREE: The liver is normal in size, shape, and attenuation. No focal hepatic lesion or biliary ductal dilatation is present. The gallbladder is unremarkable with no evidence of radiopaque gallstones, gallbladder wall thickening, or obvious pericholecystic inflammatory changes. PANCREAS: Unremarkable. SPLEEN: Unremarkable. ADRENAL GLANDS: Unremarkable. KIDNEYS AND URETERS: The kidneys are normal in size, shape, and attenuation. No hydronephrosis, hydroureter, or calculi seen. No perinephric stranding. BLADDER: Decompressed. GASTROINTESTINAL TRACT: Stomach is decompressed. A few prominent left mid abdominal fluid filled small bowel loops are seen. There is fairly long segment thickening of the distal ileum with surrounding inflammatory change and small mesenteric lymph nodes. No perforation. The terminal ileum itself is mildly thickened but without inflammatory changes. Appendix is unremarkable. Ascending, transverse and descending colon are thick walled but decompressed. Possible mild inflammatory stranding surrounding the decompressed descending/sigmoid colon. Rectosigmoid and rectum contain fluid/diarrhea. ABDOMINAL WALL: Small fat filled umbilical hernia. Small left infraumbilical ventral hernia with small amount of fluid. Adjacent bowel does not enter the hernia sac. LYMPH NODES: No pathologic lymphadenopathy. Small right lower quadrant mesenteric lymph nodes and stranding. VASCULAR: Unremarkable. PELVIC VISCERA: Unremarkable. Free pelvic fluid. OSSEOUS STRUCTURES: Unremarkable. CT/CT abdomen pelvis w IV con IMPRESSION: Abnormally thick walled distal ileum with surrounding inflammatory change, free fluid and small mesenteric lymph nodes. Inflammatory bowel disease such as Crohn's disease leading diagnostic consideration. Decompressed large bowel with possible diffuse wall thickening. Infectious or inflammatory etiologies not excluded. Umbilical and left ventral hernias as described. Fleischner guidelines were followed.
[2023-08-08 09:23] VITALS: BP 122/78; PULSE 82; RESP 18; TEMP 36.2; O2SAT 97; BMI 44.0
[2023-08-08 09:44] VITALS: BP 129/76; PULSE 82; RESP 18; TEMP 36.9; O2SAT 98
--- NOTE | 2023-08-08 09:47 | ED.ABDPAIN ---
HPI - Abdominal Pain General Chief Complaint: Abdominal Pain Stated Complaint: Stomach pain Time Seen by Provider: 08/08/23 09:28 History of Present Illness HPI narrative: Patient is a 38-year-old female with a history of irritable bowel syndrome presents today with having abdominal pain diffuse ongoing for the last week. Not related to food. Positive decreased appetite. Positive diarrhea brown in color. Patient from home. No history of gallbladder problems. No pain on urination. Patient from home. No travel history. No recent antibiotics. Similar symptoms with a little bowel syndrome. No history of colonoscopy or endoscopy. Patient being followed by GI Related Data Previous Rx's Medication Instructions Recorded mesalamine 0.375 gram 1.5 g (4 x 0.375 gram) PO QAM #120 04/21/23 capsule,extended release 24 hr caps (Apriso) cholecalciferol (vitamin D3) 25 25 mcg PO DAILY 90 days #90 caps 07/23/23 mcg (1,000 unit) capsule vedolizumab 300 mg intravenous 300 mg IV Q8W 08/05/23 solution (Entyvio) Allergies Allergy/AdvReac Type Severity Reaction Status Date / Time No Known Allergies Allergy Verified 07/15/23 15:14 Review of Systems Review of Systems Positive abdominal pain. Positive diarrhea Yes all other systems are reviewed and are negative PMFSH Past Medical History Attestation statement: The following information was validated with the patient. Medical History delivery delivered section wound complication Morbid obesity Colon cancer screening Ulcerative colitis Surgical History History of salpingectomy Hx of colonoscopy No pertinent past surgical history Family History Family History Family/Other No problems noted. Maternal Aunt Colon cancer Mother Family history of early CAD Father No problems noted. Brother No problems noted. Brother No problems noted. Sister No problems noted. Sister No problems noted. Sister No problems noted. Son No problems noted. Son No problems noted. Daughter No problems noted. Social History Social History Housing: Apartment Alcohol intake: current Alcohol intake frequency: holidays/special occasions only Patient Tobacco Use Status: Never used Tobacco Smoked in Last 30 Days: No e-Cigarette/Vaping Use: Never Used Use of substances other than those prescribed or required for medical reasons: No Advance Directives: Yes Advance Directives Information Provided: Yes Advance Directives on File: No service: No Current occupational status: employed Cognitive needs: No Hearing needs: No Vision needs: No Physical Exam ED Vital Signs: Vital Signs - 24 hr 08/08/23 09:23 08/08/23 09:44 08/08/23 13:10 Temperature 97.1 F 98.4 F 97.9 F Pulse Rate 82 82 68 Respiratory Rate 18 18 16 Blood Pressure 122/78 129/76 132/56 L Pulse Oximetry 97 98 97 Oxygen Delivery Method Room Air Room Air Room Air BMI result Body Mass Index 44.0 Appearance: Alert. Oriented X3. No acute distress. Eyes: Pupils equal, round and reactive to light. ENT: Pharynx normal. Neck: Normal inspection. Neck supple. No lymph nodes noted. No crepitus CVS: Normal heart rate and rhythm. Pulses normal. Normal S1 and S2 Respiratory: No respiratory distress. Breath sounds normal. No Wheezing. No rales Abdomen: Soft and nontender. No rigidity. No distention. good BS x4 Skin: Skin warm and dry. Normal skin color. Normal skin turgor. Extremities: No lower extremity edema. Neurovascular intact to all extremities. No Lacerations. No Rash Neuro: Oriented X 3. No motor deficit. No sensory deficit. Moving all extermities. No slurred speech Medical Decision Making Medical Decision Making MDM Narrative: Patient has a history of irritable bowel syndrome presents today with having abdominal pain diffuse over the abdomen worse over the upper abdomen. CT scan of the abdomen pelvis showed no evidence of obstruction abscess perforation. Question inflammation in the ileum. Patient has GI doctor for follow-up on an outpatient basis. Is in no distress. LFTs are normal there is no evidence for biliary disease. Patient's urine showed no signs of infection. test was negative unlikely be related issues. Will discharge patient Differential Diagnosis Differential Diagnoses: The differential diagnosis associated with the presentation includes Obstruction, abscess, perforation, appendicitis, cholecystitis, pancreatitis, IBS Lab Data [facility] Lab Attestation statement: I reviewed the patient's lab results. 08/08/23 10:07 08/08/23 10:07 Labs: Lab Results 08/08/23 08/08/23 Range/Units 10:07 12:18 WBC 9.5 (4.8-10.8) X10*3/uL RBC 4.41 (4.20-5.50) X10*6/uL Hgb 10.6 L (12.0-16.0) g/dl Hct 32.6 L (37.0-47.0) % MCV 73.9 L (80.0-98.0) fL MCH 24.0 L (27.0-33.0) pg MCHC 32.5 (31.0-35.0) g/dl RDW 15.3 (11.0-16.0) % Plt Count 436 H (160-400) X10*3/uL MPV 9.1 L (9.4-12.3) fL Immature Gran % (Auto) 0.9 H (0.0-0.4) % Neut % (Auto) 69.0 (45-73) % Lymph % (Auto) 13.9 L (20-40) % Iron % (Auto) 9.9 (2-11) % Eos % (Auto) 5.6 H (0-4) % Baso % (Auto) 0.7 (0-2) % Lymph # (Auto) 1.3 (1.2-4.9) X10*3/uL Iron # (Auto) 0.9 (0.1-1.2) X10*3/uL Eos # (Auto) 0.5 H (0.0-0.4) X10*3/uL Baso # (Auto) 0.1 (0.0-0.2) X10*3/uL Abs Immat Gran (auto) 0.09 H (0.00-0.03) X10*3/uL Absolute Neuts (auto) 6.6 (2.0-8.3) x10*3/uL Absolute Nucleated RBC 0.000 (0.0-0.012) X10*3/uL Nucleated RBC % (auto) 0.0 (0.0-0.2) /100WBC Sodium 137 (135-145) mmol/L Potassium 4.0 (3.3-5.1) mmol/L Chloride 107 (96-108) mmol/L Carbon Dioxide 23 (22-29) mmol/L Anion Gap 11 L (12-20) BUN 6 L (9-16) mg/dL Creatinine 0.78 (0.5-1.4) mg/dL Estim Creat Clear Calc 108.5 Estimated GFR > 60 Random Glucose 111 (60-115) mg/dL Calcium 8.8 (8.4-10.2) mg/dL Total Bilirubin 0.4 (0.0-1.0) mg/dL Direct Bilirubin 0.1 (0.0-0.5) mg/dL AST 11 (5-31) U/L ALT 7 (0-31) U/L Alkaline Phosphatase 77 (39-117) U/L Total Protein 6.8 (6.5-8.0) g/dL Albumin 3.7 (3.5-5.0) g/dL Lipase 6 L (8-78) U/L Beta HCG, Quant < 2 mIU/mL Urine Color Yellow Urine Appearance Clear Urine pH 6.5 (5.0-9.0) Ur Specific Lorraine >= 1.030 H (1.005-1.025) Urine Protein Negative (Neg-Trace) mg/dL Urine Glucose (UA) Negative (Negative) mg/dL Urine Ketones Trace (Negative) mg/dL Urine Blood Negative (Negative) Urine Nitrite Negative (Negative) Ur Leukocyte Esterase Negative (Negative) Urine RBC 0-2 (0-2) /HPF Urine WBC 0-5 (0-5) /HPF Ur Squamous Epith Cells 3-5 (0-2) /HPF Urine Bacteria None Seen (None Seen) Hyaline Casts 0-2 (0-2) /LPF Independent Interpretation I performed an independent interpretation of an: CT Scan Interpretation: No gross obstruction Radiology Impression Discussion of test interpretation with radiology: I have reviewed the radiologist's reading. External Record Review External record reviewed: Outpatient record I reviewed patient's GI record has a history of inflammatory bowel disease history of ulcerative colitis Medications Administered Discontinued Medications Generic Name Dose Route Start Last Admin Trade Name Freq PRN Reason Stop Dose Admin Sodium Chloride 500 mls @ 999 mls/hr 08/08/23 09:45 08/08/23 10:50 Ns IV 08/08/23 10:15 Infused .Q31M FAYE Infusion Iohexol 85 ml 08/08/23 11:25 08/08/23 11:26 Iohexol 350 Mg/Ml 100 Ml Infus..Btl IV 08/08/23 11:26 85 ml ONCE ONE Administration Ondansetron HCl 4 mg 08/08/23 09:45 08/08/23 10:10 Ondansetron Hcl 4 Mg/2 Ml Vial IVPUSH 08/08/23 09:46 4 mg ONCE ONE Administration Discharge Plan Discharge Clinical Impression: IBD (inflammatory bowel disease) Patient Disposition: Home, Self-Care Instructions: Enteritis (ED) Prescriptions: No Action mesalamine [Apriso] 0.375 gram capsule,extended release 24hr 1.5 g PO QAM Qty: 120 1RF cholecalciferol (vitamin D3) 25 mcg (1,000 unit) capsule 25 mcg PO DAILY 90 Days Qty: 90 0RF Entyvio 300 mg recon soln 300 mg IV Q8W Rx Instructions: Infuse 300mg loading dose at week zero, two and six and every eight weeks thereafter. Please administer over 30 mins. Referrals: Cesar Velazquez MD [Physician] - Print Language: Finnish
[2023-08-08] MEDS: 0.9 % Sodium Chloride 500 ML 999 ML IV (10:10)
[2023-08-08] MEDS: ondansetron HCL 4 MG/2 ML VIAL IVPUSH (10:10)
[2023-08-08 10:13] LABS: MANUAL DIFF FLAG NO
[2023-08-08 10:14] LABS: Basophils Absolute Auto 0.1 X10*3/uL (0.0-0.2); Basophils Percent Auto 0.7 % (0-2); Eosinophils Absolute Auto 0.5 X10*3/uL (0.0-0.4); Eosinophils Percent Auto 5.6 % (0-4); Hematocrit 32.6 % (37.0-47.0); Hemoglobin 10.6 g/dl (12.0-16.0); Imm Gran Abs Auto 0.09 X10*3/uL (0.00-0.03); Imm Gran Pct Auto 0.9 % (0.0-0.4); Lymphocytes Absolute Auto 1.3 X10*3/uL (1.2-4.9); Lymphocytes Percent Auto 13.9 % (20-40); Mean Corpuscular HGB Conc 32.5 g/dl (31.0-35.0); Mean Corpuscular Volume 73.9 fL (80.0-98.0); Mean Platelet Volume 9.1 fL (9.4-12.3); Monocytes Absolute Auto 0.9 X10*3/uL (0.1-1.2); Monocytes Percent Auto 9.9 % (2-11); Neutrophils Absolute Auto 6.6 x10*3/uL (2.0-8.3); Platelet Count 436 X10*3/uL (160-400); Red Blood Count 4.41 X10*6/uL (4.20-5.50); Red Cell Distribution Width 15.3 % (11.0-16.0); White Blood Count 9.5 X10*3/uL (4.8-10.8)
[2023-08-08 10:48] LABS: Alanine Aminotransferase 7 U/L (0-31); Albumin Level 3.7 g/dL (3.5-5.0); Alkaline Phosphatase 77 U/L (39-117); Anion Gap 11 (12-20); Aspartate Amino Transferase 11 U/L (5-31); Bilirubin Direct 0.1 mg/dL (0.0-0.5); Bilirubin Total 0.4 mg/dL (0.0-1.0); Blood Urea Nitrogen 6 mg/dL (9-16); Calcium 8.8 mg/dL (8.4-10.2); Carbon Dioxide 23 mmol/L (22-29); Chloride 107 mmol/L (96-108); Creatinine Clr Calc Pharmacy 108.5; Estimated Glomerular Filt Rate > 60; Glucose Random 111 mg/dL (60-115); Lipase 6 U/L (8-78); Sodium 137 mmol/L (135-145); Total Protein 6.8 g/dL (6.5-8.0)
[2023-08-08 11:06] LABS: HCG Quantitative < 2 mIU/mL
[2023-08-08] MEDS: iohexoL 350 MG/ML 100 ML INFUS..BTL 85 ML IV (11:26)
[2023-08-08 12:29] LABS: Appearance Urine Clear; Color Urine Yellow; Glucose Urine UA Negative (Negative); Leukocyte Esterase Urine Negative (Negative); Nitrite Urine Negative (Negative); PH 6.5 (5.0-9.0); Specific Gravity - Urine >= 1.030 (1.005-1.025); Urine Blood Negative (Negative); Urine Ketones Trace mg/dL (Negative); Urine Protein Negative (Neg-Trace)
[2023-08-08 12:34] LABS: Bacteria Urine None Seen (None Seen); Hyaline Casts Urine 0-2 /LPF (0-2); RBC Urine 0-2 /HPF (0-2); WBC Urine 0-5 /HPF (0-5)
[2023-08-08 13:10] VITALS: BP 132/56; PULSE 68; RESP 16; TEMP 36.6; O2SAT 97
[2023-08-08 14:15] VITALS: PULSE 78; RESP 18; O2SAT 98
== END 2023-08-08 14:34 | disposition home or self-care (01) ==
PROVIDERS: Emergency Provider Emergency Medicine Emergency Medical Services
DX: K58.0 Irritable bowel syndrome with diarrhea (principal); E73.9 Lactose intolerance, unspecified; D64.9 Anemia, unspecified; E55.9 Vitamin D deficiency, unspecified; A07.2 Cryptosporidiosis; K64.9 Unspecified hemorrhoids; F50.89 Other specified eating disorder; D36.7 Benign neoplasm of other specified sites; F32.0 Major depressive disorder, single episode, mild; E66.01 Morbid (severe) obesity due to excess calories; Z68.41 Body mass index [BMI] 40.0-44.9, adult
CPT/HCPCS: 36415; 74177; 80048; 80076; 81001; 83690; 84702; 85025; 96361; 96374; 99284; J2405; Q9967

== ENCOUNTER 2023-08-11 09:03 | Outpatient (AMB) | payer BC, MEDICAID, SELFPAY ==
[2023-08-11 09:10] VITALS: BP 107/76; PULSE 70; BMI 43.8
--- NOTE | 2023-08-11 09:10 | MHC.OFFVIS ---
Intake Vital Signs 08/11/23 09:10 Height 5 ft 1 in Weight 232 lb BMI 43.8 BP 107/76 Blood Pressure Location Rt brachial Position Sitting Pulse 70 Intake Visit Reasons: Pilar cyst/ Lt post scalp Intake Note: Patient referred for cyst on Lt post scalp. Has been present for 10 years. Denies bleeding, oozing. C/o pain with touch. Pulmonary Function Technician Required: No Accompanied by: Self / Same As Patient Allergies No Known Allergies Allergy (Verified 08/11/23 09:12) HPI HPI Comments History of Present Illness Details Patient presents with a recurrent left posterior scalp mass. She has had this approximately 10 years time. It is increasing in size, becoming more symptomatic. She was to have it removed. Approximately 10 years ago, patient was seen by a surgeon with attempted remove this and was unable to do so. She has no such lesions elsewhere. Chart was reviewed patient evaluated [facility] Medical History delivery delivered section wound complication Morbid obesity Colon cancer screening Ulcerative colitis Surgical History History of salpingectomy Hx of colonoscopy No pertinent past surgical history Family History Family/Other No problems noted. Maternal Aunt Colon cancer Mother Family history of early CAD Father No problems noted. Brother No problems noted. Brother No problems noted. Sister No problems noted. Sister No problems noted. Sister No problems noted. Son No problems noted. Son No problems noted. Daughter No problems noted. Social History Housing: Apartment Alcohol intake: current Alcohol intake frequency: holidays/special occasions only Patient Tobacco Use Status: Never used Tobacco e-Cigarette/Vaping Use: Never Used service: No Current occupational status: employed Cognitive needs: No Hearing needs: No Vision needs: No Female Reproductive History Menstrual Age of Menarche: 11 Physical Exam Vital Signs: Last Vital Signs Pulse 70 08/11/23 09:10 BP 107/76 08/11/23 09:10 BMI result Body Mass Index 43.8 Neck Other: Approximately 4 x 3 cm left posterior deep scalp mass near the occiput. Overlying scar. No cervical or periclavicular adenopathy. Chest Other: Chest sounds bilaterally, HS 1 in 2 GI Other: Abdomen soft, corpulent, benign Assessment & Plan Assessment & Plan (1) Dermoid cyst of head: Code(s): D36.7 - Benign neoplasm of other specified sites Plan Risks, benefits, alternatives of excision of recurrent left posterior scalp mass reviewed with the patient and included but not limited to bleeding, infection, recurrence, numbness, pain, scarring the patient was to proceed. Because this was initially attempted at an office setting by the prior surgeon, the current plan is to arrange for this in the procedure room with the patient can be sedated and full excision hopefully completed. All questions were answered. Arrangements were made for this. Coding Level of Care Code New Pt Level 5 (72950) Diagnoses Dermoid cyst of head D36.7
== END 2023-08-11 09:42 | disposition home or self-care (01) ==
PROVIDERS: PCP Internal Medicine; Referring Provider Internal Medicine; Visit Provider Surgery
DX: D36.7 Benign neoplasm of other specified sites (principal)
CPT/HCPCS: 99204

== ENCOUNTER → 2023-08-11 09:03 | Outpatient (BNVA) | payer BC, MEDICAID, SELFPAY | PROVIDERS: PCP Internal Medicine; Referring Provider Internal Medicine; Visit Provider Surgery ==

== ENCOUNTER 2023-08-26 12:48 | Outpatient (REF) | payer BC, MEDICAID, SELFPAY ==
[2023-08-28 17:59] LABS: TS Negative Control Passed; TS Panel A 4; TS Panel B 3; TS Positive Control Passed; TSpotTB Negative (Negative)
== END 2023-08-26 12:49 | disposition home or self-care (01) ==
LOC: HO.MDS 12:48
PROVIDERS: Visit Provider Internal Medicine Gastroenterology
DX: Z11.1 Encounter for screening for respiratory tuberculosis (principal); K51.90 Ulcerative colitis, unspecified, without complications
CPT/HCPCS: 36415; 86481; 96365; J3380

== ENCOUNTER 2023-08-28 09:00 | Day surgery (SDC) | payer BC, MEDICAID, SELFPAY ==
[2023-08-26 11:06] VITALS: BMI 44.7
--- NOTE | 2023-08-26 13:14 | MHC.SHP ---
Pre-Procedural Eval Section A Date of Service: 08/26/23 The patient is an INPATIENT: No Changes since office visit: No Cold of Flu in the past 2 weeks, No New Medical Problems, No Changes in Medication and No Patient answered all questions The History & Physical has been completed within 30 days and I have reviewed it.: Yes Section B Chief Complaint: Benign neoplasm of other specified sites Allergies: Allergies Allergy/AdvReac Type Severity Reaction Status Date / Time No Known Allergies Allergy Verified 08/26/23 11:17 Plan I have reviewed the history and physical and performed a pertinent physical examination on my patient. No changes have occurred unless specified. Time Spent With Patient Time: Total time managing care of this patient today ____ minutes.
--- NOTE | 2023-08-27 11:53 | HO.ANESPROP2 ---
Documented by User: Slime Chery NP 08/27/23 11:54 HPI - Anesthesia Eval Consult details Narrative: 38yo F for Left Wide Local Excision Recurrent Posterior Scalp Mass PMFSH Active Problems Active Problems: All Active Problems (Updated 08/09/23 @ 00:01 by Lotus Conde) Encounter for general adult medical examination with abnormal findings (Acute) Dermoid cyst of head (Acute) Anemia (Acute) Morbid obesity due to excess calories (Acute) Vitamin D deficiency (Acute) Cellulitis (Acute) Encounter for incision and drainage procedure (Acute) Hidradenitis suppurativa (Acute) Cellulitis of left leg (Acute) 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 (Acute) Hemorrhoids (Acute) (Acute) Abscess of left leg (Acute) Nausea and vomiting in (Acute) test positive (Acute) History of 3 sections (Acute) History of delivery, currently (Acute) Other specified eating disorder (Acute) Mild depression (Acute) Pre-op evaluation (Acute) Elevated fasting blood sugar (Acute) Lactose intolerance (Acute) Ulcerative colitis (Acute) Morbid obesity (Acute) Colon cancer screening (Acute) Past Medical History Medical History delivery delivered section wound complication Morbid obesity Colon cancer screening Ulcerative colitis Family History Family History Family/Other No problems noted. Maternal Aunt Colon cancer Mother Family history of early CAD Father No problems noted. Brother No problems noted. Brother No problems noted. Sister No problems noted. Sister No problems noted. Sister No problems noted. Son No problems noted. Son No problems noted. Daughter No problems noted. Surgical History Surgical History Hx of tubal ligation History of History of salpingectomy Hx of colonoscopy Social History Social History Housing: Apartment Alcohol intake: current Alcohol intake frequency: does not drink Patient Tobacco Use Status: Never used Tobacco e-Cigarette/Vaping Use: Never Used Use of substances other than those prescribed or required for medical reasons: No Are you DNR?: No Advance Directives: No Advance Directives Information Provided: Yes service: No Current occupational status: employed Cognitive needs: No Hearing needs: No Vision needs: No Meds Allergies Allergy/AdvReac Type Severity Reaction Status Date / Time No Known Allergies Allergy Verified 08/28/23 09:41 Home Medications Medication Instructions Recorded Confirmed Last Taken Type vedolizumab 300 mg intravenous 300 mg IV Q8W 08/26/23 08/28/23 Unknown History solution (Entyvio) Exam Exam Date and Time: August 27, 2023 1153 Height,Weight and Vital Signs: Height 5 ft 1 in Weight 107.275 kg Pertinent Lab Results Pertinent Lab Results: Laboratory Tests 08/08/23 10:07 WBC 9.5 Hgb 10.6 L Hct 32.6 L Plt Count 436 H Sodium 137 Potassium 4.0 Chloride 107 Carbon Dioxide 23 BUN 6 L Creatinine 0.78 Assessment and Plan Assessment Anesthesia Assessment: Chart Reviewed Documented by User: Inge Rae MD 08/28/23 10:28 PMFSH Past Medical History Medical History delivery delivered section wound complication Morbid obesity Colon cancer screening Ulcerative colitis Family History Family History Family/Other No problems noted. Maternal Aunt Colon cancer Mother Family history of early CAD Father No problems noted. Brother No problems noted. Brother No problems noted. Sister No problems noted. Sister No problems noted. Sister No problems noted. Son No problems noted. Son No problems noted. Daughter No problems noted. Surgical History Surgical History Hx of tubal ligation History of History of salpingectomy Hx of colonoscopy History of Problems with Anesthesia: No Social History Social History Housing: Apartment Alcohol intake: current Alcohol intake frequency: does not drink Patient Tobacco Use Status: Never used Tobacco e-Cigarette/Vaping Use: Never Used Use of substances other than those prescribed or required for medical reasons: No Are you DNR?: No Advance Directives: No Advance Directives Information Provided: Yes service: No Current occupational status: employed Cognitive needs: No Hearing needs: No Vision needs: No Meds Allergies Allergy/AdvReac Type Severity Reaction Status Date / Time No Known Allergies Allergy Verified 08/28/23 09:41 Home Medications Medication Instructions Recorded Confirmed Last Taken Type vedolizumab 300 mg intravenous 300 mg IV Q8W 08/26/23 08/28/23 Unknown History solution (Entyvio) Exam Airway Mallampati Class: II TM Dist: >3cm Neck ROM: Full Loose/Missing/Broken Teeth: No Heart: RRR Lungs: CTA Assessment and Plan Assessment Anesthesia Assessment: Anesthesia Plan Discussed Final Anesthetic Review History of Problems with Anesthesia: No NPO: Yes ASA Class: III Final Preanesthetic Review: Meds/Allgs Chart Reviewed, Consent Obtained/Reviewed and Anes Risks/Benef Reviewed Patient Risk: Intermediate Procedure Risk: Low Anesthetic Plan Anesthetic Plan: MAC: Disposition: Standard PACU
--- NOTE | 2023-08-28 07:34 | MHC.SHP ---
Pre-Procedural Eval Section A Date of Service: 08/28/23 The patient is an INPATIENT: No Changes since office visit: No Cold of Flu in the past 2 weeks, No New Medical Problems, No Changes in Medication and No Patient answered all questions The History & Physical has been completed within 30 days and I have reviewed it.: Yes Section B Chief Complaint: Benign neoplasm of other specified sites Allergies: Allergies Allergy/AdvReac Type Severity Reaction Status Date / Time No Known Allergies Allergy Verified 08/26/23 11:17 Plan I have reviewed the history and physical and performed a pertinent physical examination on my patient. No changes have occurred unless specified. Time Spent With Patient Time: Total time managing care of this patient today ____ minutes.
[2023-08-28 09:42] VITALS: BP 113/54; PULSE 78; RESP 16; TEMP 36.7; O2SAT 99; BMI 43.2
[2023-08-28] MEDS: Lactated Ringers 1,000 ML 100 ML IVCONT (10:12)
--- NOTE | 2023-08-28 11:51 | W.PM.OPN ---
Operative Note Operative Note Date of Service: 08/28/23 Narrative: Preoperative diagnosis: [] Recurrent left posterior neck mass Postop diagnosis: [] Same Procedure [] wide local excision left posterior neck mass Surgeon: [] [employer] Product Development Manager: [] Kailyn Type of Anesthesia: [] MAC Indication for surgery: [] Final specimen measured approximately 3 x 2 cm consistent with a dermoid type mass excised in toto. Cicatrization from previous excision. Findings: [] Patient brought to the operating room, placed on operative table in a supine position, after adequate level of MAC anesthesia was induced, patient was placed in right lateral decubitus position and left posterior neck area was prepped and draped in usual sterile fashion. Proposed incisional site was infiltrated with 1% lidocaine/0.5% Marcaine and a transverse incision was made over the mass in question carried down through skin, subcutaneous tissue, were uneventful enucleation of a dermoid type cyst measuring approximately 3 x 2 cm was uneventfully performed. Specimen sent to pathology. Patient was somewhat challenging during sedation. Please refer to anesthesia regarding this. Wound was irrigated, secured hemostasis, and closed using interrupted inverted dermal 3-0 Vicryl sutures followed by Steri-Strips sterile dressings. Sponge, needle, instrument counts reported correct. Patient tolerated the procedure well and emerged anesthesia stable condition. EBL minimal
[2023-08-28 11:56] VITALS: BP 122/97; PULSE 72; RESP 16; TEMP 36.4; O2SAT 97
[2023-08-28 12:11] VITALS: BP 138/72; PULSE 78; RESP 16; O2SAT 100
[2023-08-28 12:26] VITALS: BP 133/73; PULSE 70; RESP 16; TEMP 36.4; O2SAT 100
== END 2023-08-28 12:46 | disposition home or self-care (01) ==
PROVIDERS: Visit Provider Surgery
PROC: (CPT 11424; principal; 2023-08-28 11:10)
DX: L72.11 Pilar cyst (principal); E66.01 Morbid (severe) obesity due to excess calories; Z68.41 Body mass index [BMI] 40.0-44.9, adult
CPT/HCPCS: 11424; 88304; J0665; J0690; J1100; J2250; J2405; J2704

== ENCOUNTER → 2023-08-28 09:00 | Outpatient (BNV) | payer BC, MEDICAID, SELFPAY | PROVIDERS: Visit Provider Surgery | DX: L72.11 Pilar cyst (principal) | CPT/HCPCS: 11423 ==

== ENCOUNTER 2023-09-08 10:45 | Outpatient (AMB) | payer BC, MEDICAID, SELFPAY ==
[2023-09-08 10:58] VITALS: BP 113/71; PULSE 77
--- NOTE | 2023-09-08 10:58 | A.OFFVIS_ITS ---
Intake Vital Signs 09/08/23 10:58 Weight 228 lb BP 113/71 Blood Pressure Location Rt brachial Position Sitting Pulse 77 Intake Visit Reasons: S/P WLE recurrent Lt posterior scalp mass Intake Note: Patient here s/p WLE Lt post scalp mass. Reports incision healing well. Denies tenderness, oozing, itch. Allergies No Known Allergies Allergy (Verified 08/28/23 09:41) HPI HPI Comments 2 History of Present Illness Details Patient has no wound issues or complaints. Pathology is benign. PFS Medical History delivery delivered section wound complication Morbid obesity Colon cancer screening Ulcerative colitis Surgical History Hx of tubal ligation History of History of salpingectomy Hx of colonoscopy Family History Family/Other No problems noted. Maternal Aunt Colon cancer Mother Family history of early CAD Father No problems noted. Brother No problems noted. Brother No problems noted. Sister No problems noted. Sister No problems noted. Sister No problems noted. Son No problems noted. Son No problems noted. Daughter No problems noted. Housing: Apartment Alcohol intake: current Alcohol intake frequency: does not drink Patient Tobacco Use Status: Never used Tobacco e-Cigarette/Vaping Use: Never Used service: No Current occupational status: employed Cognitive needs: No Hearing needs: No Vision needs: No Female Reproductive History Menstrual Age of Menarche: 11 Physical Exam Vital Signs: Last Vital Signs Pulse 77 09/08/23 10:58 BP 113/71 09/08/23 10:58 HEENT Other: Incision clean dry and intact healing very well. Assessment & Plan Assessment & Plan (1) Pilar cyst of scalp: Code(s): L72.11 - Pilar cyst Plan Patient has been given local instructions, and will follow-up p.r.n.. Coding Level of Care Code Global (53251) Diagnoses Pilar cyst of scalp L72.11
== END 2023-09-08 11:04 | disposition home or self-care (01) ==
PROVIDERS: PCP Internal Medicine; Visit Provider Surgery
DX: L72.11 Pilar cyst (principal)
CPT/HCPCS: 99024

== ENCOUNTER → 2023-09-08 10:45 | Outpatient (BNVA) | payer BC, MEDICAID, SELFPAY | PROVIDERS: PCP Internal Medicine; Visit Provider Surgery ==

== ENCOUNTER 2023-09-19 12:24 | Outpatient (REF) | payer BC, MEDICAID, SELFPAY | END 2023-09-19 12:25 | disposition home or self-care (01) | LOC: HO.MDS 12:24 | PROVIDERS: PCP Internal Medicine; Visit Provider Internal Medicine Gastroenterology | DX: K51.90 Ulcerative colitis, unspecified, without complications (principal) | CPT/HCPCS: 96365; J3380 ==

== ENCOUNTER 2023-10-03 09:38 | Outpatient (AMB) | payer BC, MEDICAID, SELFPAY ==
--- NOTE | 2023-10-03 09:39 | MHC.OFFVIS ---
Intake Intake Visit Reasons: 4 months follow up Intake Note: Kale duggan as a video call today. CC: She states she is having some itching like a rash. All over her body. It is more so on her stomach. 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 PFSH Medical History delivery delivered section wound complication Morbid obesity Colon cancer screening Ulcerative colitis Surgical History Hx of tubal ligation History of History of salpingectomy Hx of colonoscopy Family History Family/Other No problems noted. Maternal Aunt Colon cancer Mother Family history of early CAD Father No problems noted. Brother No problems noted. Brother No problems noted. Sister No problems noted. Sister No problems noted. Sister No problems noted. Son No problems noted. Son No problems noted. Daughter No problems noted. Social History Housing: Apartment Alcohol intake: current Alcohol intake frequency: does not drink Patient Tobacco Use Status: Never used Tobacco e-Cigarette/Vaping Use: Never Used service: No Current occupational status: employed Cognitive needs: No Hearing needs: No Vision needs: No Female Reproductive History Menstrual Age of Menarche: 11 Assessment & Plan Assessment & Plan (1) Ulcerative colitis: Code(s): K51.90 - Ulcerative colitis, unspecified, without complications Qualifiers: Ulcerative colitis location: unspecified ulcerative colitis location Digestive disease complication type: without complication Qualified Code(s): K51.90 - Ulcerative colitis, unspecified, without complications Plan: A/P: 1/UC--on entyvio now, with good response, mild itching with entyivo PLAN: 1/ cont entyvio, add pre med with beandryl and hydrocortisone 2/?colonoscopy in near future Telehealth Telehealth Location of provider rendering services: practice address Location of patient: address on file Patient Identification confirmed using: Name, : Yes Telehealth method: voice only (videon not working) Patient verbally consented to treatment: Yes Patient verbally consented to billing insurance company: Yes Patient informed of any privacy concerns related to visit: Yes Minutes spent on Phone/Video with Pt.: 7 Coding Level of Care Code Tele Est Pt Level 3 (70100) Diagnoses Ulcerative colitis without complications, unspecified location K51.90 Ulcerative colitis location: unspecified ulcerative colitis location Digestive disease complication type: without complication
== END 2023-10-03 13:55 | disposition home or self-care (01) ==
LOC: HO.HGI 09:38
PROVIDERS: PCP Internal Medicine; Visit Provider Internal Medicine Gastroenterology
DX: K51.90 Ulcerative colitis, unspecified, without complications (principal)
CPT/HCPCS: 99441

== ENCOUNTER → 2023-10-03 09:38 | Outpatient (BNVA) | payer BC, MEDICAID, SELFPAY | PROVIDERS: PCP Internal Medicine; Visit Provider Internal Medicine Gastroenterology ==

== ENCOUNTER 2023-10-28 13:02 | Outpatient (REF) | payer BC, MEDICAID, SELFPAY | END 2023-10-28 13:03 | disposition home or self-care (01) | LOC: HO.MDS 13:02 | PROVIDERS: Visit Provider Internal Medicine Gastroenterology | DX: K51.90 Ulcerative colitis, unspecified, without complications (principal) | CPT/HCPCS: 96365; 96375; J1200; J1720; J3380 ==

== ENCOUNTER → 2023-11-11 08:10 | Outpatient (BNVA) | payer BC, MEDICAID, SELFPAY | PROVIDERS: PCP Internal Medicine; Visit Provider Physician Assistant Surgical ==

== ENCOUNTER 2023-12-30 08:23 | Outpatient (REF) | payer BC, MEDICAID, SELFPAY ==
--- NOTE | 2023-12-30 08:25 | PC.NURSE ---
pharmacy called for doug
[2023-12-30 08:26] VITALS: BP 105/45; PULSE 63; RESP 18; TEMP 36.3; O2SAT 99
[2023-12-30] MEDS: diphenhydrAMINE HCL 50 MG/ML VIAL IVPUSH (09:26)
[2023-12-30] MEDS: Vedolizumab 300 MG in 0.9 % Sodium Chloride 250 ML 510 MG IV (09:26)
[2023-12-30] MEDS: Hydrocortisone Sod Succ/PF 100 MG VIAL IVPUSH (09:26)
== END 2023-12-30 08:24 | disposition home or self-care (01) ==
LOC: HO.MDS 08:23
PROVIDERS: Visit Provider Internal Medicine Gastroenterology
DX: K51.90 Ulcerative colitis, unspecified, without complications (principal)
CPT/HCPCS: 96365; 96375; J1200; J1720; J3380

== ENCOUNTER 2024-01-23 11:03 | Outpatient (AMB) | payer BC, MEDICAID, SELFPAY ==
--- NOTE | 2024-01-23 11:03 | MHC.OFFVIS ---
Intake Vital Signs 01/23/24 11:04 Height 5 ft 1 in Blood Pressure Location Lt brachial Position Sitting Intake Visit Reasons: 4 month follow up Intake Note: Kale presents as a 4 month follow up. CC: She wants to talk to you about having bariatric surgery regarding her stomach. 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 c idff and GI panel was negative lactoferrin was 200 INTERIM: she has no bowel complaints she has no abdominal pain no diarrhea or blood she is asking about sleeve gastrectomy \ no issues with entyvio EXAM: good color, talking easily A/P: 1/UC--on entyvio now, with good response, PLAN: 1/ cont entyvio, add pre med with beandryl and hydrocortisone 2/ colonoscopy to assess for deep remission, advised ok to have sleeve --may have to arrange it around timing of her entyvio [facility] Medical History delivery delivered section wound complication Morbid obesity Colon cancer screening Ulcerative colitis Surgical History Hx of tubal ligation History of History of salpingectomy Hx of colonoscopy Family History Family/Other No problems noted. Maternal Aunt Colon cancer Mother Family history of early CAD Father No problems noted. Brother No problems noted. Brother No problems noted. Sister No problems noted. Sister No problems noted. Sister No problems noted. Son No problems noted. Son No problems noted. Daughter No problems noted. Social History Housing: Apartment Alcohol intake: current Alcohol intake frequency: does not drink Patient Tobacco Use Status: Never used Tobacco e-Cigarette/Vaping Use: Never Used service: No Current occupational status: employed Cognitive needs: No Hearing needs: No Vision needs: No Female Reproductive History Menstrual Age of Menarche: 11 Assessment & Plan Assessment & Plan (1) Ulcerative colitis: Code(s): K51.90 - Ulcerative colitis, unspecified, without complications Qualifiers: Ulcerative colitis location: unspecified ulcerative colitis location Digestive disease complication type: without complication Qualified Code(s): K51.90 - Ulcerative colitis, unspecified, without complications Plan: A/P: 1/UC--on entyvio now, with good response, PLAN: 1/ cont entyvio, add pre med with beandryl and hydrocortisone 2/ colonoscopy to assess for deep remission, advised ok to have sleeve --may have to arrange it around timing of her entyvio Telehealth Telehealth Location of provider rendering services: practice address Location of patient: address on file Patient Identification confirmed using: Name, : Yes Telehealth method: video Patient verbally consented to treatment: Yes Patient verbally consented to billing insurance company: Yes Patient informed of any privacy concerns related to visit: Yes Minutes spent on Phone/Video with Pt.: 5 Coding Level of Care Code Tele Est Pt Level 3 (22710) Diagnoses Ulcerative colitis without complications, unspecified location K51.90 Ulcerative colitis location: unspecified ulcerative colitis location Digestive disease complication type: without complication
== END 2024-01-23 12:00 | disposition home or self-care (01) ==
LOC: HO.HGI 11:03
PROVIDERS: PCP Internal Medicine; Visit Provider Internal Medicine Gastroenterology
DX: K51.90 Ulcerative colitis, unspecified, without complications (principal)
CPT/HCPCS: 99213

== ENCOUNTER → 2024-01-23 11:03 | Outpatient (BNVA) | payer BC, MEDICAID, SELFPAY | PROVIDERS: PCP Internal Medicine; Visit Provider Internal Medicine Gastroenterology ==

== ENCOUNTER 2024-05-13 08:17 | Day surgery (SDC) | payer BC, MEDICAID, SELFPAY ==
[2024-05-11 13:15] VITALS: BMI 44.6
--- NOTE | 2024-05-12 10:02 | HO.ANESPROP2 ---
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 (Acute) Hemorrhoids (Acute) (Acute) Abscess of left leg (Acute) Nausea and vomiting in (Acute) test positive (Acute) History of 3 sections (Acute) History of delivery, currently (Acute) Other specified eating disorder (Acute) Mild depression (Acute) Pre-op evaluation (Acute) Elevated fasting blood sugar (Acute) Lactose intolerance (Acute) Ulcerative colitis (Acute) Morbid obesity (Acute) Colon cancer screening (Acute) Past Medical History Medical History delivery delivered section wound complication Morbid obesity Colon cancer screening Ulcerative colitis Family History Family History Family/Other No problems noted. Maternal Aunt Colon cancer Mother Family history of early CAD Father No problems noted. Brother No problems noted. Brother No problems noted. Sister No problems noted. Sister No problems noted. Sister No problems noted. Son No problems noted. Son No problems noted. Daughter No problems noted. Surgical History Surgical History Hx of tubal ligation History of History of salpingectomy Hx of colonoscopy History of Problems with Anesthesia: No Social History Social History Housing: Apartment Alcohol intake: current Alcohol intake frequency: does not drink Patient Tobacco Use Status: Never used Tobacco e-Cigarette/Vaping Use: Never Used service: No Current occupational status: employed Cognitive needs: No Hearing needs: No Vision needs: No Meds Allergies Allergy/AdvReac Type Severity Reaction Status Date / Time No Known Allergies Allergy Verified 01/23/24 11:04 Home Medications ?Medication ?Instructions ?Recorded ?Confirmed ?Last Taken ?Type vedolizumab 300 mg intravenous 300 mg IV Q8W 08/26/23 09/08/23 Unknown History solution (Entyvio) Exam Height,Weight and Vital Signs: Height 5 ft 1 in Weight 107.048 kg Assessment and Plan Assessment Anesthesia Assessment: Chart Reviewed Final Anesthetic Review History of Problems with Anesthesia: No
[2024-05-13 08:44] VITALS: BP 101/54; PULSE 70; RESP 16; TEMP 36.8; O2SAT 97; BMI 46.0
[2024-05-13] MEDS: Lactated Ringers 1,000 ML 100 ML IVCONT (08:52)
--- NOTE | 2024-05-13 08:58 | MHC.SHP ---
Pre-Procedural Eval Section A - 24 Hr Update-Section A only Date of Service: 05/13/24 Section B - Complete if H&P > 30 days Chief Complaint: Ulcerative colitis, unspecified, without complicat Relevant Family History (Specify if Yes): No Relevant Social History: None Present Medications: None Medical History: Significant History (Ulcerative colitis) History of Previous Operations: Relevant previous surgery/procedure and date(s) (Hx of tubal ligation History of History of salpingectomy Hx of colonoscopy) Allergies: Allergies Allergy/AdvReac Type Severity Reaction Status Date / Time No Known Allergies Allergy Verified 01/23/24 11:04 Review of Systems Sugical H&P ROS: Negative: Constitution, Cardiovascular, Respiratory, Neurological, Psychiatric, Hem-Onc, Allergic/Immunologic, Gastrointestinal, Genitourinary, Musculoskeletal, Integumentary, Endocrine and Eyes/Ears/Nose/Throat Exam Surgical H&P Exam: Normal: HEENT, Normal: Heart, Normal: Lungs, Normal: Extremities, Normal: Abdomen, Normal: Skin and Normal: Neurological Plan Diagnosis/Plan: Unchanged I have reviewed the history and physical and performed a pertinent physical examination on my patient. No changes have occurred unless specified. Time Spent With Patient Time: Total time managing care of this patient today ____ minutes.
--- NOTE | 2024-05-13 09:45 | P.OPN-COLO_ITS ---
Colonoscopy Operative Note Operative Note Date of Service: 05/13/24 Narrative: Operative Information Procedure Description: Colonoscopy Indication: hx of colitis,surveillance Anesthesia: MAC COLONOSCOPY Instrument: Olympus variable stiffness pediatric scope 190L Colonoscopy Monitoring: Vital signs and clinical assessment, continuous EKG monitoring, Pulse oximetry, Carbon Dioxide monitoring and blood pressure monitoring were done throughout the procedure. Colon withdrawal time was 12 minutes. Procedure: The patient was placed in the left lateral decubitis position and pre-procedure medications were administered. After a digital rectal examination of the ano-rectum, the video colonoscope was inserted into the rectum and advanced through the colon to the cecum/TI. The colonoscope was slowly withdrawn in a retrograde panoramic fashion and the colon mucosa was carefully examined including a retroflexed view of the rectum. Findings and interventions are described below. Procedure Difficulty: easy Findings: Terminal Ileum-normal, random bx taken Cecum:normal,random bx taken Ascending Colon: normal,random bx taken Transverse Colon -scattered pseudopolyps in distal transverse --random bx taken and cold snare removal of some polyps Descending Colon:scattered pseudopolyp proximal descending, random bx taken Sigmoid Colon: normal, random bx taken Rectum: Retroflexion with small internal hemorrhoids seen, grade I, random bx taken Anorectum - normal Intervention: cold snare, cold forceps bx Colon preparation: [place] Bowel Preparation Scale Right colon; 2 Transverse colon: 2 Left colon; 2 (0 = Unprepared colon segment with mucosa not seen due to solid stool that cannot be cleared. 1 = Portion of mucosa of the colon segment seen, but other areas of the colon segment not well seen due to staining, residual stool and/or opaque liquid. 2 = Minor amount of residual staining, small fragments of stool and/or opaque liquid, but mucosa of colon segment seen well. 3 = Entire mucosa of colon segment seen well with no residual staining, small f ragments of stool or opaque liquid) Impression and Post Procedure Diagnosis: pseudopolyps internal hemorrhoids Plan: High fiber diet leaflet Avoid straining at stool, epsom salts and sitz bath, anusol supps or cream Repeat Colonoscopy in 1-2 years or earlier if clinically indicated--cont doug Above findings were reviewed with the patient and relevant handouts were provided if indicated.
[2024-05-13 10:18] VITALS: BP 102/61; PULSE 66; RESP 16; TEMP 36.3; O2SAT 98
[2024-05-13 10:33] VITALS: BP 117/72; PULSE 67; RESP 18; TEMP 36.2; O2SAT 100
== END 2024-05-13 10:57 | disposition home or self-care (01) ==
PROVIDERS: Visit Provider Internal Medicine Gastroenterology
PROC: 0DJD8ZZ Inspection of Lower Intestinal Tract, Via Natural or Artificial Opening Endoscopic (ICD-10-PCS; CPT 45378; principal; 2024-05-13 10:20)
DX: K51.90 Ulcerative colitis, unspecified, without complications (principal); K63.5 Polyp of colon; K51.40 Inflammatory polyps of colon without complications; K64.0 First degree hemorrhoids; E66.01 Morbid (severe) obesity due to excess calories; Z79.620 Long term (current) use of immunosuppressive biologic; Z79.899 Other long term (current) drug therapy; Z98.51 Tubal ligation status; Z98.890 Other specified postprocedural states
CPT/HCPCS: 45385; 45380; 88305; J2704

== ENCOUNTER → 2024-05-13 08:17 | Outpatient (BNV) | payer BC, MEDICAID, SELFPAY | PROVIDERS: Visit Provider Internal Medicine Gastroenterology | DX: K51.90 Ulcerative colitis, unspecified, without complications (principal); K51.40 Inflammatory polyps of colon without complications; K64.0 First degree hemorrhoids | CPT/HCPCS: 45380; 45385 ==

== ENCOUNTER 2024-07-30 09:14 | Outpatient (AMB) | payer BC, MEDICAID, SELFPAY ==
--- NOTE | 2024-07-30 09:19 | MHC.OFFVIS ---
Vital Signs 07/30/24 09:21 Height 5 ft 1 in Weight 246 lb 14.684 oz BMI 46.6 BP 123/76 Blood Pressure Location Lt brachial Position Sitting Pulse 71 Intake Visit Reasons: 6 month follow up Intake Note: Kale presents in the office as a 6 month follow up. CC: Just here for results to her colonoscopy - no concerns at this time. 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 VITAL SIGNS:see workflow HEENT: Nonicteric sclerae, PERRLA, EOMI. Oropharynx clear. Moist mucous membranes. Conjunctivae appear well perfused. No thyroid mass. CHEST: Chest wall is nontender. HEART: Regular rate and rhythm without murmurs. LUNGS: Clear to auscultation bilaterally. ABDOMEN: Soft, positive bowel sounds, nontender, no organomegaly.no flank tenderness SKIN: No rash, no excessive bruising, petechiae, or purpura. NEUROLOGIC: Cranial nerves II-XII intact without motor/sensory deficit. Psych: normal affect A/P: 1/UC--on entyvio now, with good response, clinical remission, inactive colitis on colo PLAN: 1/ cont entyvio, pre med with beandryl and hydrocortisone 2/ repeat colo in few years 3/ recheck labs incl ferritin [facility] Medical History delivery delivered section wound complication Morbid obesity Colon cancer screening Ulcerative colitis Surgical History Hx of tubal ligation History of History of salpingectomy Hx of colonoscopy Family History Family/Other No problems noted. Maternal Aunt Colon cancer Mother Family history of early CAD Father No problems noted. Brother No problems noted. Brother No problems noted. Sister No problems noted. Sister No problems noted. Sister No problems noted. Son No problems noted. Son No problems noted. Daughter No problems noted. Social History Housing: Apartment Alcohol intake: current Alcohol intake frequency: does not drink Patient Tobacco Use Status: Never used Tobacco e-Cigarette/Vaping Use: Never Used service: No Current occupational status: employed Cognitive needs: No Hearing needs: No Vision needs: No Female Reproductive History Menstrual Age of Menarche: 11 Physical Exam Vital Signs: Last Vital Signs Pulse 71 07/30/24 09:21 BP 123/76 07/30/24 09:21 BMI result Body Mass Index 46.6 Assessment & Plan Assessment & Plan (1) Ulcerative colitis: Code(s): K51.90 - Ulcerative colitis, unspecified, without complications Category: Medical Qualifiers: Ulcerative colitis location: unspecified ulcerative colitis location Digestive disease complication type: without complication Qualified Code(s): K51.90 - Ulcerative colitis, unspecified, without complications Plan: see above Orders: Orders Complete Blood Count Auto Diff Today K51.90 - Ulcerative colitis, unspecified, without complications C Reactive Protein Today K51.90 - Ulcerative colitis, unspecified, without complications Lactoferrin, Fecal, Quant. Today K51.50 - Left sided colitis without complications, K51.90 - Ulcerative colitis, unspecified, without complications Comprehensive Met. Panel Today K51.90 - Ulcerative colitis, unspecified, without complications, K75.81 - Nonalcoholic steatohepatitis ([place]) Ferritin Today K51.90 - Ulcerative colitis, unspecified, without complications Coding Level of Care Code Est Pt Level 4 (63747) Diagnoses Ulcerative colitis without complications, unspecified location K51.90 Ulcerative colitis location: unspecified ulcerative colitis location Digestive disease complication type: without complication
[2024-07-30 09:21] VITALS: BP 123/76; PULSE 71; BMI 46.6
== END 2024-07-30 09:42 | disposition home or self-care (01) ==
PROVIDERS: PCP Internal Medicine; Visit Provider Internal Medicine Gastroenterology
DX: K51.90 Ulcerative colitis, unspecified, without complications (principal)
CPT/HCPCS: 99214

== ENCOUNTER → 2024-07-30 09:14 | Outpatient (BNVA) | payer BC, MEDICAID, SELFPAY | PROVIDERS: PCP Internal Medicine; Visit Provider Internal Medicine Gastroenterology ==

== ENCOUNTER 2024-07-30 10:35 | Outpatient (AMB) | payer BC, MEDICAID, SELFPAY ==
[2024-07-30 10:40] VITALS: BP 120/80; PULSE 70; O2SAT 96; BMI 47.1
--- NOTE | 2024-07-30 10:40 | MHC.PC.OV ---
Vital Signs 07/30/24 10:40 Height 5 ft 1 in Weight 249 lb 2 oz BMI 47.1 BP 120/80 Blood Pressure Location Lt brachial Position Sitting Pulse 70 Pulse Source Pulse Oximeter Pulse Oximetry (%) 96 Oxygen Delivery Method Room Air Intake Visit Reasons: Annual PE Allergies No Known Allergies Allergy (Verified 07/30/24 10:40) Medication List - Last Reconciled 07/30/24 by Cassie Retana MD cholecalciferol (vitamin D3) 25 mcg PO DAILY 90 days vedolizumab (Entyvio) 300 mg IV Q8W Tobacco use date assessed: 07/15/23 Dental Screening Dental Screen Date: 07/15/23 HPI Annual PE HPI Details Patient is a 39-year-old female who suffers from ulcerative colitis, established with Dr. Velazquez [facility] For physical examination Tells me that Dr. Velazquez has cleared for bariatric surgery which she will be having August 19 at [facility] Patient has had labs done through surgeon as well as have order for labs through Dr. Velazquez She is due for mammogram order placed She offers no complaints today Patient have OBGYN Pap smears through them breast exams through them [facility] Medical History delivery delivered section wound complication Morbid obesity Colon cancer screening Ulcerative colitis Surgical History Hx of tubal ligation History of History of salpingectomy Hx of colonoscopy Family History Family/Other No problems noted. Maternal Aunt Colon cancer Mother Family history of early CAD Father No problems noted. Brother No problems noted. Brother No problems noted. Sister No problems noted. Sister No problems noted. Sister No problems noted. Son No problems noted. Son No problems noted. Daughter No problems noted. Social History Housing: Apartment Alcohol intake: current Alcohol intake frequency: does not drink Patient Tobacco Use Status: Never used Tobacco e-Cigarette/Vaping Use: Never Used service: No Current occupational status: employed Cognitive needs: No Hearing needs: No Vision needs: No Female Reproductive History Menstrual Age of Menarche: 11 Questionnaire PHQ-9 Over the last 2 weeks, how often have you been bothered by any of the following problems? 1. Little interest or pleasure in doing things: not at all 2. Feeling down, depressed, or hopeless: not at all 3. Trouble falling or staying asleep, or sleeping too much: not at all 4. Feeling tired or having little energy: not at all 5. Poor appetite or overeating: not at all 6. Feeling bad about yourself - or that you are a failure or have let yourself or your family down: not at all 7. Trouble concentrating on things, such as reading the newspaper or watching television: not at all 8. Moving or speaking so slowly that other people could have noticed. Or the opposite - being so fidgety or restless that you have been moving around a lot more than usual: not at all 9. Thoughts that you would be better off or of hurting yourself in some way: not at all Total score: 0 Depression Screening Interpretation: Negative Depression Screening Done: Yes 35790 - PHQ-9 Billing: Yes Source: Developed by Drs. Farhad Gusman, Nelly Champagne, Stanley Miranda and colleagues, with an educational tatum from [employer]. Thrive Questionnaire Date Thrive assessed: 07/15/23 I am a: Patient What is your living situation today?: I have a steady place to live Within the past 12 months, did the food you bought not last and you didn't have the money to get more?: Never true Within the past 12 months, did you worry whether your food would run out before you got money to buy more?: Never true Do you have trouble paying for medicines?: Yes Do you have trouble getting transportation to medical appointments?: No Do you have trouble paying your heating and electricity bill?: No Do you have trouble taking care of your child, family member or friend?: No Do you have trouble with day-to-day activities such as bathing, preparing meals, shopping, managing finances, etc.?: No Are you currently unemployed and looking for a job?: No Are you interested in more education?: No Please select the resources that you would like help with: None Currently or been in a relationship where the following occur: No concerns reported THRIVE Score: 0 AUDIT C Alcohol Use Questionnaire (AUDIT-C) 1. How often do you have a drink containing alcohol?: Never Total Score: 0 MARLEEN-7 AMB Questionnaire MARLEEN-7 Date MARLEEN - 7 assessed: 07/15/23 Feeling nervous, anxious, or on edge: 0 = Not at all Not being able to stop or control worryin = Not at all Worrying too much about different things: 0 = Not at all Trouble relaxin = Not at all Being so restless that it is hard to sit still: 0 = Not at all Becoming easily annoyed or irritable: 0 = Not at all Feeling afraid as if something awful might happen: 0 = Not at all Total MARLEEN-7 score (0-4 normal; 5-9 mild; 10-14 moderate; 15-21 severe): 0 Source: Developed by Drs. Farhad Gusman, Nelly Champagne, Stanley Miranda and colleagues, with an educational tatum from [employer]. Review of Systems Const Denies chills, Denies fever(s) and Denies headache(s) Eyes Denies blurry vision ENT Denies headache(s), Denies nasal discharge, Denies nasal obstruction, Denies odynophagia and Denies sinus pain Card Denies chest pain at rest and Denies chest pain with activity Resp Denies cough and Denies hemoptysis GI Denies diarrhea, Denies odynophagia, Denies vomiting and Denies hematemesis Reports as per HPI Musc Denies abnormal gait Skin/Breast Reports as per HPI Neuro Denies Neuro-related abnormal movements, Denies Abnormal speech present, Denies abnormal gait, Denies headache(s) and Denies Sensory deficit (Neuro) Psych Denies mood swings and Denies paranoia Endo Reports as per HPI Brad/Lymph Reports as per HPI Aller/Immun Reports as per HPI Physical exam (Primary Care) Vital Signs: Last Vital Signs Pulse 70 07/30/24 10:40 BP 120/80 07/30/24 10:40 Pulse Ox 96 07/30/24 10:40 Oxygen Delivery Method Room Air 07/30/24 10:40 BMI result Body Mass Index 47.1 Tobacco/Smoking Status: Tobacco use Status Tobacco use date assessed 07/15/23 07/30/24 10:43 Patient Tobacco Use Status Never used Tobacco 07/30/24 10:43 e-Cigarette/Vaping Use Never Used 07/30/24 10:43 PHQ-9: PHQ-9 Score PHQ-9: Total score 0 07/30/24 10:54 Depression Screening Interpretation: Negative Thrive Assessment: Date of Thrive Assessment Date Thrive assessed 07/15/23 07/30/24 10:43 Currently or been in a relationship where the following occur: No concerns reported Const General: cooperative, comfortable and no acute distress Orientation/consciousness: patient oriented x3 HENMT Head: Yes normocephalic and Yes atraumatic Eyes General: appearance normal, both eyes and all related structures Pupils: Equal, round and reactive pupils present EOM: EOMs intact bilaterally Neck Neck: Yes supple and No lymphadenopathy Thyroid: Thyroid normal Lymphatic: no lymphadenopathy noted Resp Effort & Inspection: normal respiratory effort and able to speak in complete sentences Auscultation: clear to auscultation bilaterally Cardio Heart sounds: S1 normal heart sound present and S2 normal heart sound present GI Palpation (GI): Soft to palpation and nontender Auscultation: normal bowel sounds General: Yes no CVA tenderness Back/Spine/Pelvis Back: no CVA tenderness Skin General skin exam: elasticity normal and turgor normal Neuro General: patient oriented x3 and gait normal Cranial nerves: Yes Equal, round and reactive pupils present Speech: No Abnormal speech present Sensory Exam: No Sensory deficit (Neuro) Coordination: tandem gait normal and Romberg test negative Extrem General: Yes normal exam except as noted and No edema Coding Level of Care Code Est Pt Level 3 (88288) Est Pt Prev Care 40-64y(41815) Diagnoses Encounter for general adult medical examination with abnormal findings Z00.01 Iron deficiency anemia due to chronic blood loss D50.0 Anemia type: iron deficiency Iron deficiency anemia type: chronic blood loss Morbid obesity due to excess calories E66.01 Ulcerative colitis without complications, unspecified location K51.90 Ulcerative colitis location: unspecified ulcerative colitis location Digestive disease complication type: without complication Assessment & Plan Assessment & Plan (1) Encounter for general adult medical examination with abnormal findings: Code(s): Z00.01 - Encounter for general adult medical examination with abnormal findings Category: Medical (2) Anemia: Code(s): D64.9 - Anemia, unspecified Category: Medical Qualifiers: Anemia type: iron deficiency Iron deficiency anemia type: chronic blood loss Qualified Code(s): D50.0 - Iron deficiency anemia secondary to blood loss (chronic) (3) Morbid obesity due to excess calories: Code(s): E66.01 - Morbid (severe) obesity due to excess calories Category: Medical (4) Ulcerative colitis: Code(s): K51.90 - Ulcerative colitis, unspecified, without complications Category: Medical Qualifiers: Ulcerative colitis location: unspecified ulcerative colitis location Digestive disease complication type: without complication Qualified Code(s): K51.90 - Ulcerative colitis, unspecified, without complications Plan Patient is a 39-year-old female who suffers from ulcerative colitis, established with Dr. Velazquez [facility] For physical examination Tells me that Dr. Velazquez has cleared for bariatric surgery which she will be having August 19 at [facility] Patient has had labs done through surgeon as well as have order for labs through Dr. Velazquez She is due for mammogram order placed She offers no complaints today Patient have OBGYN Pap smears through them breast exams through them Orders: Orders MM tomosynthesis screening BI Today Z12.31 - Encounter for screening mammogram for malignant neoplasm of breast
== END 2024-07-30 11:02 | disposition home or self-care (01) ==
PROVIDERS: Visit Provider Internal Medicine
DX: Z00.00 Encounter for general adult medical examination without abnormal findings (principal); E66.813 Obesity, class 3; K51.90 Ulcerative colitis, unspecified, without complications; Z68.42 Body mass index [BMI] 45.0-49.9, adult; D50.0 Iron deficiency anemia secondary to blood loss (chronic)

== ENCOUNTER 2024-07-30 10:56 | Outpatient (REF) | payer BC, MEDICAID, SELFPAY ==
[2024-07-30 13:15] LABS: MANUAL DIFF FLAG NO
[2024-07-30 13:22] LABS: Basophils Absolute Auto 0.1 X10*3/uL (0.0-0.2); Basophils Percent Auto 0.8 % (0-2); Eosinophils Absolute Auto 0.3 X10*3/uL (0.0-0.4); Eosinophils Percent Auto 5.3 % (0-4); Hematocrit 36.1 % (37.0-47.0); Hemoglobin 12.2 g/dl (12.0-16.0); Imm Gran Abs Auto 0.06 X10*3/uL (0.00-0.03); Lymphocytes Absolute Auto 1.9 X10*3/uL (1.2-4.9); Mean Corpuscular HGB Conc 33.8 g/dl (31.0-35.0); Mean Corpuscular Volume 82.8 fL (80.0-98.0); Mean Platelet Volume 9.5 fL (9.4-12.3); Monocytes Absolute Auto 0.5 X10*3/uL (0.1-1.2); Monocytes Percent Auto 7.8 % (2-11); Neutrophils Absolute Auto 3.3 x10*3/uL (2.0-8.3); Neutrophils Percent Auto 54.1 % (45-73); Platelet Count 324 X10*3/uL (160-400); Red Blood Count 4.36 X10*6/uL (4.20-5.50); Red Cell Distribution Width 13.5 % (11.0-16.0)
[2024-07-30 13:50] LABS: Alanine Aminotransferase 16 U/L (0-31); Albumin Level 4.2 g/dL (3.5-5.0); Alkaline Phosphatase 74 U/L (39-117); Anion Gap 10 (12-20); Aspartate Amino Transferase 15 U/L (5-31); Bilirubin Total 0.2 mg/dL (0.0-1.0); Blood Urea Nitrogen 10 mg/dL (9-16); Carbon Dioxide 28 mmol/L (22-29); Chloride 105 mmol/L (96-108); Estimated Glomerular Filt Rate > 60; Glucose Random 104 mg/dL (60-115); Potassium 4.2 mmol/L (3.3-5.1); Sodium 139 mmol/L (135-145)
[2024-07-30 14:07] LABS: Ferritin 44 ng/mL (10-250)
== END 2024-07-30 10:57 | disposition home or self-care (01) ==
LOC: HO.HMGCLDS 10:56
PROVIDERS: PCP Internal Medicine; Visit Provider Internal Medicine Gastroenterology
DX: K51.90 Ulcerative colitis, unspecified, without complications (principal); K75.81 Nonalcoholic steatohepatitis (NASH)
CPT/HCPCS: 36415; 80053; 82728; 85025; 86140

== ENCOUNTER 2024-08-28 07:55 | Outpatient (REF) | payer BC, MEDICAID, SELFPAY ==
--- NOTE | ~2024-08-28 | MM_ITS ---
EXAMINATION: MM SCREENING DIGITAL BREAST TOMOSYNTHESIS, BILATERAL CLINICAL INFORMATION: Screening. Asymptomatic. COMPARISON: Mammography: Baseline. TECHNIQUE: Digital breast mammography with tomosynthesis is performed in both the craniocaudal and mediolateral oblique views along with computer-aided detection (CAD). FINDINGS: There are scattered areas of fibroglandular density (ACR BI-RADS breast composition Category b). There are no significant masses, abnormal calcifications, or other abnormalities. MM/MM tomosynthesis screening BI IMPRESSION: No mammographic evidence of malignancy. ASSESSMENT: BI-RADS BI-RADS 1 - Negative RECOMMENDATION: Routine annual mammography screening. 1 year F/U This examination should not preclude the clinical evaluation of a suspicious palpable abnormality. This patient's information was entered into a reminder system with a target due date for their next mammogram. Electronically signed by: Ashlyn Fleming DO 09/07/2024 11:06 AM [facility]
== END 2024-08-28 07:56 | disposition home or self-care (01) ==
LOC: HO.MAMMO 07:55
PROVIDERS: PCP Internal Medicine; Visit Provider Internal Medicine
DX: Z12.31 Encounter for screening mammogram for malignant neoplasm of breast (principal)
CPT/HCPCS: 77063; 77067

== ENCOUNTER → 2024-08-28 08:00 | Outpatient (BNV) | payer BC, MEDICAID, SELFPAY | PROVIDERS: PCP Internal Medicine; Visit Provider Internal Medicine | DX: Z12.31 Encounter for screening mammogram for malignant neoplasm of breast (principal) | CPT/HCPCS: 77063; 77067 ==

== ENCOUNTER 2025-01-18 08:41 | Outpatient (AMB) | payer BC, MEDICAID, SELFPAY ==
--- NOTE | 2025-01-18 08:43 | AM.OFFWIN_ITS ---
Intake Vital Signs 01/18/25 08:50 Weight 248 lb BP 118/70 Blood Pressure Location Rt brachial Position Sitting Pulse 85 Pulse Source Pulse Oximeter Pulse Oximetry (%) 98 Oxygen Delivery Method Room Air Intake Visit Reasons: EP-uti Intake Note: Patient here for burning sensation and full bladder feeling which started yesterday. Patient Tobacco Use Status: Never used Tobacco Allergies No Known Allergies Allergy (Verified 01/18/25 08:50) Do you need a note to return to daycare/school/sports/work: Yes HPI HPI Comments History of Present Illness Details History of Present Illness The patient is a 39-year-old female presenting with a urinary tract infection. She noted symptom onset yesterday, characterized by burning during urination and a sensation of pressure in the lower abdomen. She denies any accompanying lower back pain or fever. She has no history of kidney stones and typically experiences UTIs only during pregnancies. The patient underwent a bilateral salpingectomy, so she should not be but she is worried Physical Exam General: Cooperative, healthy appearing, comfortable, no acute distress and well developed Orientation: Patient oriented x3 Limitations: No limitations Head: Normal to inspection Ears: Hearing grossly normal bilaterally Nose: Normal External nose present Face and sinus: Normal facial exam Eyes: Appearance normal, both eyes and all related structures Neck: Normal visual inspection and Yes full ROM Respiratory: Normal respiratory effort and able to speak in complete sentences. Skin: No rashes or lesions noted Neuro: Patient oriented x3 Extremities: Normal to inspection PENDING SALE TO [facility] Medical History delivery delivered section wound complication Morbid obesity Colon cancer screening Ulcerative colitis Surgical History Hx of tubal ligation History of History of salpingectomy Hx of colonoscopy Family History Family/Other No problems noted. Maternal Aunt Colon cancer Mother Family history of early CAD Father No problems noted. Brother No problems noted. Brother No problems noted. Sister No problems noted. Sister No problems noted. Sister No problems noted. Son No problems noted. Son No problems noted. Daughter No problems noted. Social History Housing: Apartment Alcohol intake: current Alcohol intake frequency: does not drink Patient Tobacco Use Status: Never used Tobacco e-Cigarette/Vaping Use: Never Used service: No Current occupational status: employed Cognitive needs: No Hearing needs: No Vision needs: No Female Reproductive History Menstrual Age of Menarche: 11 Review of Systems Const All systems reviewed & are unremarkable except as noted in HPI and below Physical Exam Vital Signs: Last Vital Signs Pulse 85 01/18/25 08:50 BP 118/70 01/18/25 08:50 Pulse Ox 98 01/18/25 08:50 Oxygen Delivery Method Room Air 01/18/25 08:50 Results AMB Test Urine AMB Test Urine Negative Last Edit by ALEXANDRE Marques on 01/18/25 09:10 AMB Urinalysis, Automated UA Leukoctes 15 Cuauhtemoc/uL Last Edit by ALEXANDRE Marques on 01/18/25 09:1 0 UA Nitrite Positive Last Edit by Tone Cuba CCM on 01/18/25 09:10 UA Urobilinogen 1 mg/dL Last Edit by Tone Cuba CCM on 01/18/25 09: 10 UA Protein 0 mg/dL Last Edit by Tone Cuba CCM on 01/18/25 09:10 UA pH 7.0 Last Edit by Tone Cuba CCM on 01/18/25 09:10 UA Blood 10 Jacinto/uL Last Edit by Tone Cuba CCM on 01/18/25 09:10 UA Specific Conway 1.010 Last Edit by ALEXANDRE Marques on 01/18/25 09:10 UA Ketone Negative Last Edit by Tone Cuba CCM on 01/18/25 09:10 UA Bilirubin 0 mg/dL Last Edit by Tone Cuba CCM on 01/18/25 09:10 UA Glucose 0 mg/dL Last Edit by Tone Cuba CCM on 01/18/25 09:10 Assessment & Plan Assessment & Plan (1) UTI (urinary tract infection): Code(s): N39.0 - Urinary tract infection, site not specified Qualifiers: Hematuria presence: with hematuria Urinary tract infection type: acute cystitis Qualified Code(s): N30.01 - Acute cystitis with hematuria Plan: The negative urine test was also addressed, considering her previous surgical history and recurrent UTIs during periods. UA +leuks, + nitrites, and + blood. The confirmed diagnosis of a urinary tract infection was managed with a five-day course of cefuroxime. The patient was advised that resolution of symptoms is expected, and to follow up if there is no improvement, as reconsideration of antibiotic selection may become necessary. A urinalysis confirmed the presence of an infection, but a urine culture is not planned given the circumstances. Patient was informed and verbally consented to the use of an ambient scribe for clinic note documentation during this visit. Medications: New cefuroxime axetil 500 mg PO Q12H 10 tabs 0RF Coding Level of Care Code Est Pt Level 3 (30825) Diagnoses Acute cystitis with hematuria N30.01 Hematuria presence: with hematuria Urinary tract infection type: acute cystitis
[2025-01-18 08:50] VITALS: BP 118/70; PULSE 85; O2SAT 98
== END 2025-01-18 09:40 | disposition home or self-care (01) ==
PROVIDERS: PCP Internal Medicine; Visit Provider Physician Assistant
DX: N30.01 Acute cystitis with hematuria (principal); Z32.02 Encounter for pregnancy test, result negative; Z13.9 Encounter for screening, unspecified

== ENCOUNTER → 2025-01-18 08:41 | Outpatient (BNVA) | payer BC, MEDICAID, SELFPAY | PROVIDERS: PCP Internal Medicine; Visit Provider Physician Assistant | DX: N30.01 Acute cystitis with hematuria (principal) | CPT/HCPCS: 81003; 81025 ==

== ENCOUNTER 2025-04-18 08:30 | Outpatient (AMB) | payer BC, MEDICAID, SELFPAY ==
--- NOTE | 2025-04-18 08:40 | AM.OFFWIN_ITS ---
Intake Vital Signs 04/18/25 08:41 Height 5 ft 1 in Weight 221 lb BMI 41.8 BP 102/66 Blood Pressure Location Rt brachial Position Sitting Pulse 80 Pulse Source Pulse Oximeter Temp 98.2 F Temp Source Oral Pulse Oximetry (%) 96 Oxygen Delivery Method Room Air Intake Visit Reasons: EP UTI? Patient Tobacco Use Status: Never used Tobacco Allergies No Known Allergies Allergy (Verified 04/18/25 08:44) Do you need a note to return to daycare/school/sports/work: No HPI HPI Comments History of Present Illness Details History - The patient is a 39-year-old female pr esenting with symptoms suggestive of a urinary tract infection. - Symptoms began yesterday, including bu rning sensation during urination and urinary frequency. - There is a history of a urinary tract infection in January, treated successfully with Cefuroxime for five days. - The patient reports a small amount of blood in the urine but denies back pain, fever, chills, vaginal discharge, or itching. - The patient recently completed her men strual period and has not used any new soaps or detergents. - She denies fever, chills, CP, SOB, abd pain, n/v/d, vaginal discharge or itching. Physical Exam General: Cooperative, healthy appearing, comfortable, no acute distress and well developed Cardiac: Normal S1 and S2. RRR, no M/R/G noted. Respiratory: Normal respiratory effort and able to speak in complete sentences. Clear to auscultation bilaterally. No w/r/r noted. Skin: No rashes or lesions noted. GI: Normal inspection. Normal BS noted. Soft, non-tender, non-distended. No TTP of all 4 quadrants. No guarding or rebound tenderness noted. Back: Negative CVA bilaterally Patient was informed and verbally consented to the use of an ambient scribe for clinic note documentation during this visit. [facility] Medical History delivery delivered section wound complication Morbid obesity Colon cancer screening Ulcerative colitis Surgical History Hx of tubal ligation History of History of salpingectomy Hx of colonoscopy Family History Family/Other No problems noted. Maternal Aunt Colon cancer Mother Family history of early CAD Father No problems noted. Brother No problems noted. Brother No problems noted. Sister No problems noted. Sister No problems noted. Sister No problems noted. Son No problems noted. Son No problems noted. Daughter No problems noted. Social History Housing: Apartment Alcohol intake: current Alcohol intake frequency: does not drink Patient Tobacco Use Status: Never used Tobacco e-Cigarette/Vaping Use: Never Used service: No Current occupational status: employed Cognitive needs: No Hearing needs: No Vision needs: No Female Reproductive History Menstrual Age of Menarche: 11 Review of Systems Const All systems reviewed & are unremarkable except as noted in HPI and below Physical Exam Vital Signs: Last Vital Signs Temp 98.2 F 04/18/25 08:41 Pulse 80 04/18/25 08:41 BP 102/66 04/18/25 08:41 Pulse Ox 96 04/18/25 08:41 Oxygen Delivery Method Room Air 04/18/25 08:41 BMI result Body Mass Index 41.8 Assessment & Plan Assessment & Plan (1) Dysuria: Code(s): R30.0 - Dysuria Plan Most likely UTI UA in the office 3+leuko, 1+ protein, 3+ blood Plan - Initiate treatment with cefuroxime 500 mg BID for 5 days - Send urine culture to confirm the infection and adjust antibiotics if necessary based on culture results. - Prescribe Pyridium for symptomatic relief of dysuria. - Drink lots of fluids - Tylenol or motrin as needed for pain or fever - follow up with PCP Orders: Orders Urine Culture Today N39.0 - Urinary tract infection, site not specified AMB Urinalysis Automated Today Z13.9 - Encounter for screening, unspecified Medications: New cefuroxime axetil 500 mg PO Q12H 10 tabs 0RF phenazopyridine 100 mg PO tid PRN 6 tabs 0RF Pain Coding Level of Care Code Est Pt Level 3 (30425) Diagnoses Dysuria R30.0
[2025-04-18 08:41] VITALS: BP 102/66; PULSE 80; TEMP 36.8; O2SAT 96; BMI 41.8
== END 2025-04-18 09:17 | disposition home or self-care (01) ==
PROVIDERS: PCP Internal Medicine; Visit Provider Physician Assistant Medical
DX: R30.0 Dysuria (principal); Z13.9 Encounter for screening, unspecified

== ENCOUNTER 2025-04-18 08:30 | Outpatient (REF) | payer BC, MEDICAID, SELFPAY | END 2025-04-18 08:31 | disposition home or self-care (01) | LOC: HO.LAB 08:30 | PROVIDERS: PCP Internal Medicine | DX: N39.0 Urinary tract infection, site not specified (principal); R30.0 Dysuria; Z13.9 Encounter for screening, unspecified | CPT/HCPCS: 81003; 87086 ==

== ENCOUNTER 2025-05-06 14:05 | Outpatient (REF) | payer BC, MEDICAID, SELFPAY ==
[2025-05-07 11:57] LABS: Bacterial Vaginosis PCR NEGATIVE (Negative); Candida Group PCR DETECTED (Not Detect); Candida glab krusei PCR NOT DETECTED (Not Detect); Trichomonas vaginalis PCR NOT DETECTED (Not Detect)
== END 2025-05-06 14:06 | disposition home or self-care (01) ==
LOC: HO.LNP 14:05
PROVIDERS: PCP Internal Medicine; Visit Provider Physician Assistant
DX: N76.1 Subacute and chronic vaginitis (principal); R35.0 Frequency of micturition; Z13.9 Encounter for screening, unspecified
CPT/HCPCS: 81003; 81515; 87086

== ENCOUNTER 2025-05-06 14:05 | Outpatient (AMB) | payer BC, MEDICAID, SELFPAY ==
[2025-05-06 14:10] VITALS: BP 110/82; PULSE 66; TEMP 36.8; O2SAT 97; BMI 42.2
--- NOTE | 2025-05-06 14:10 | AM.OFFWIN_ITS ---
Intake Vital Signs 05/06/25 14:10 Height 5 ft 1 in Weight 223 lb 4 oz BMI 42.2 BP 110/82 Blood Pressure Location Lt brachial Position Sitting Pulse 66 Pulse Source Pulse Oximeter Temp 98.3 F Temp Source Oral Pulse Oximetry (%) 97 Oxygen Delivery Method Room Air Intake Visit Reasons: EP ? UTI Patient Tobacco Use Status: Never used Tobacco Is last menstrual period known: Yes Last menstrual period: 04/11/25 Post menopausal: No Patient : No Allergies No Known Allergies Allergy (Verified 05/06/25 14:18) HPI HPI Comments History of Present Illness Details This is a 39-year-old female seen earlier this month for evaluation and treated for an acute urinary tract infection, presenting because she feels that her symptoms have not changed. Patient reports vaginal itching and discomfort with urinary frequency but without any dysuria or abdominal pain. Patient denies having any new sexual partners, fevers, chills or vaginal discharge. Patient completed a course of antibiotic therapy without a change of her symptoms. [facility] Medical History delivery delivered section wound complication Morbid obesity Colon cancer screening Ulcerative colitis Surgical History Hx of tubal ligation History of History of salpingectomy Hx of colonoscopy Family History Family/Other No problems noted. Maternal Aunt Colon cancer Mother Family history of early CAD Father No problems noted. Brother No problems noted. Brother No problems noted. Sister No problems noted. Sister No problems noted. Sister No problems noted. Son No problems noted. Son No problems noted. Daughter No problems noted. Social History Housing: Apartment Alcohol intake: current Alcohol intake frequency: does not drink Patient Tobacco Use Status: Never used Tobacco e-Cigarette/Vaping Use: Never Used Patient : No service: No Current occupational status: employed Cognitive needs: No Hearing needs: No Vision needs: No Female Reproductive History Menstrual Age of Menarche: 11 Date of last menstrual period: 04/11/25 Review of Systems Const All systems reviewed & are unremarkable except as noted in HPI and below Reports no additional complaints Eyes Reports no additional complaints ENT Reports no additional complaints Card Reports no additional complaints Resp Reports no additional complaints GI Reports no additional complaints Reports no additional complaints, Denies hematuria, Denies difficulty voiding, Reports nocturia, Reports genital pruritis, Denies genital lesions, Denies dysuria, Denies pelvic pain, Denies urinary urgency and Reports vaginal pruritus Musc Reports no additional complaints Skin/Breast Reports system reviewed and no additional complaints, except as documented Neuro Reports no additional complaints Psych Reports no additional complaints Endo Reports no additional complaints Brad/Lymph Reports no additional complaints Aller/Immun Reports no additional complaints Physical Exam Vital Signs: Last Vital Signs Temp 98.3 F 05/06/25 14:10 Pulse 66 05/06/25 14:10 BP 110/82 05/06/25 14:10 Pulse Ox 97 05/06/25 14:10 Oxygen Delivery Method Room Air 05/06/25 14:10 BMI result Body Mass Index 42.2 Const General: cooperative, healthy appearing, comfortable, no acute distress and well developed; No ill appearing Nutritional Appearance: well nourished Orientation/consciousness: patient oriented x3 Limitations: no limitations GI Inspection: Yes normal to inspection Palpation (GI): Soft to palpation and nontender General: Yes Bimanual renal exam normal bilaterally, Yes bladder normal to palpation and Yes no CVA tenderness External Female Exam: normal external appearance, No erythema, No externally tender, No external swelling, No lesion, No urethral discharge and other (white milky dicharge noted vaginal introitus; speculum exam deferred) Bimanual exam- vagina & uterus: bladder normal to palpation Back/Spine/Pelvis Back: no CVA tenderness Skin General skin exam: no rashes or lesions noted Neuro General: patient oriented x3 Psych Appearance: grossly normal Mental Status: mental status grossly normal Insight: Good insight present (Psych) Judgement: Good judgement present (Psych) Results AMB Urinalysis, Automated UA Leukoctes 0 Cuauhtemoc/uL Last Edit by Sivan Harper MA on 05/06/25 14:25 UA Nitrite Negative Last Edit by Sivan Harper MA on 05/06/25 14:25 UA Urobilinogen 0.2 mg/dL Last Edit by Sivan Harper MA on 05/06/25 14:25 UA Protein 0 mg/dL Last Edit by Sivan Harper MA on 05/06/25 14:25 UA pH 6.0 Last Edit by Sivan Harper MA on 05/06/25 14:25 UA Blood 0 Jacinto/uL Last Edit by Sivan Harper MA on 05/06/25 14:25 UA Specific [place] 1.020 Last Edit by Sivan Harper MA on 05/06/25 14:25 UA Ketone Negative Last Edit by Sivan Harper MA on 05/06/25 14:25 UA Bilirubin 0 mg/dL Last Edit by Sivan Harper MA on 05/06/25 14:25 UA Glucose 0 mg/dL Last Edit by Sivan Harper MA on 05/06/25 14: Results Reviewed Results Reviewed: Laboratory Last Values Urine pH (Auto) 6.0 05/06/25 14:22 Specific [place] (Auto) 1.020 05/06/25 14:22 Urine Protein (Auto) 0 mg/dL 05/06/25 14:22 Glucose (UA)(Auto) 0 mg/dL 05/06/25 14:22 Urine Ketones (Auto) Negative 05/06/25 14:22 Urine Blood (Auto) 0 Jacinto/uL 05/06/25 14:22 Urine Nitrite (Auto) Negative 05/06/25 14:22 Urine Bilirubin (Auto) 0 mg/dL 05/06/25 14:22 Urine Urobilinogen (Auto) 0.2 mg/dL 05/06/25 14:22 Leukocyte Esterase (Auto) 0 Cuauhtemoc/uL 05/06/25 14:22 Urinalysis is reviewed. Assessment & Plan Assessment & Plan (1) Vaginitis: Comment: Bacterial vaginosis panel is obtained and results are pending. Code(s): N76.0 - Acute vaginitis Qualifiers: Chronicity: subacute Qualified Code(s): N76.1 - Subacute and chronic vaginitis Plan: Treatment is deferred at this time pending results of BV panel. (2) Urinary frequency: Comment: Urinalysis is not indicative of an acute UTI. Code(s): R35.0 - Frequency of micturition Plan: Urine culture pending at this time. Orders: Orders AMB Urinalysis Automated Today Z13.9 - Encounter for screening, unspecified Bacterial Vaginosis Panel Today N76.0 - Acute vaginitis Urine Culture Today R35.0 - Frequency of micturition Coding Level of Care Code Est Pt Level 4 (23308) Diagnoses Subacute vaginitis N76.1 Chronicity: subacute Urinary frequency R35.0 Time Spent (min) 25
== END 2025-05-06 14:58 | disposition home or self-care (01) ==
PROVIDERS: PCP Internal Medicine; Visit Provider Physician Assistant
DX: N76.1 Subacute and chronic vaginitis (principal); R35.0 Frequency of micturition; Z13.9 Encounter for screening, unspecified

== ENCOUNTER 2025-05-07 13:38 | Outpatient (REF) | payer BC, MEDICAID, SELFPAY | END 2025-05-07 13:39 | disposition home or self-care (01) | LOC: HO.LAB 13:38 | PROVIDERS: Visit Provider Physician Assistant | DX: Z13.89 Encounter for screening for other disorder (principal) ==

== ENCOUNTER 2025-08-05 07:55 | Outpatient (AMB) | payer BC, MEDICAID, SELFPAY ==
[2025-08-05 08:00] VITALS: BP 100/64; PULSE 63; RESP 16; TEMP 36.7; O2SAT 95; BMI 42.9
--- NOTE | 2025-08-05 08:00 | A.OFFPC_ITS ---
Vital Signs 08/05/25 08:00 Height 5 ft 1 in Weight 227 lb BMI 42.9 BP 100/64 Blood Pressure Location Rt brachial Position Sitting Respiration 16 Pulse 63 Pulse Source Pulse Oximeter Temp 98.1 F Temp Source Oral Pulse Oximetry (%) 95 Intake Visit Reasons: PE Tableau Lead Required: No Allergies No Known Allergies Allergy (Verified 08/05/25 08:00) Medication List - Last Reconciled 08/05/25 by Cassie Retana MD cholecalciferol (vitamin D3) 25 mcg PO DAILY 90 days multivitamin (One Daily Multivitamin tablet) 1 tab PO DAILY vedolizumab (Entyvio) 300 mg IV Q8W Tobacco use date assessed: 08/05/25 Dental Screening Dental Screen Date: 08/05/25 HPI PE HPI Details History of Present Illness The patient is a 40-year-old female presenting with follow-up for weight management, management of ulcerative colitis, and evaluation of varicose veins. Obesity, Morbid: - The patient has a history of morbid ob esity with a BMI of 42.9. - The patient is currently trying to los e weight. - Weight management was discussed as a p rimary reason for this visit. Ulcerative Colitis: - The patient is established with gastro enterology. - The patient is receiving Vedolizumab ( referred to as Metivial in the conversation) intravenously every eight weeks. - Currently asymptomatic with the condit ion and reports symptoms as awesome. Varicose Veins: - The patient reports recurrence of vari cose veins in both legs, with the left leg worse. - Previous surgical intervention for jared icose veins was done twice. - Residual varicosities and symptoms of previous interventions with blood clots in superficial veins were noted. State: - The patient had a baby in 2022 at [facility]. General Health Maintenance: - Last mammogram was in August of the previous year, and she has an appointment scheduled for this year. - Patient had her last OBGYN visit at [facility]. - Influenza and pertussis vaccines were administered. Medical History: - Obesity, Morbid - Hidradenitis Suppurativa - Hemorrhoids - Major Depressive Disorder, Mild - Prediabetes - Lactose Intolerance - Ulcerative Colitis - State Surgical History: - Surgical removal of varicose veins, tw o procedures performed historically. Social History: - Mother of four children, the youngest is two years old. - Engages in activities with children, s uch as Halloween events. 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 Health Maintenance - Colonoscopy was last completed in of the previous year. - Complete Blood Count and metabolic pro file done in July of the previous year revealed no anemia. - Patient is taking Vitamin D supplement ation. - Influenza and pertussis vaccines recei pedro. 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 Patient Instructions - Schedule appointments for fasting labs tomorrow morning. - Continue with Vitamin D supplementatio n, pending lab results. - Schedule a follow-up with a weight man agement clinic. - Contact OBGYN for future appointments and health maintenance. - Get evaluated for recurrent varicose v eins symptoms again. call your vascular specialist Review of Systems - General: No fever no chills - Neurological: No headaches no dizzin ess - Ear nose throat: No sore throat no hearing difficulty no ear pain - Cardiovascular: No syncope, no chest pain, no palpitations - Gastrointestinal: No nausea vomiting or diarrhea - Endocrine: No polyuria polydipsia no heat intolerance - Genitourinary: No dysuria - Skin: No new complaints Physical Exam General: Cooperative, healthy appearing, comfortable, no acute distress Orientation: Patient oriented x3 Head: Normal to inspection Ears: Within normal limit visually Nose: Normal external nose present Face and sinus: Normal facial exam Eyes: Appearance normal, extraocular movement intact pupils reactive Neck: Normal visual inspection and supple Respiratory: Normal respiratory effort and able to speak in complete sentences. Clear to auscultation, no stridor Cardiovascular: S1 and S2 RRR GI: Normal to inspection. Soft to palpation and nontender Skin: Turgor normal, no acute findings Neuro: Patient oriented x3, motor sensory intact, balance intact, tandem pass Extremities: Varicose veins present, left leg worse than right, . PFSH Medical History delivery delivered section wound complication Morbid obesity Colon cancer screening Ulcerative colitis Surgical History Hx of tubal ligation History of History of salpingectomy Hx of colonoscopy Family History Family/Other No problems noted. Maternal Aunt Colon cancer Mother Family history of early CAD Father No problems noted. Brother No problems noted. Brother No problems noted. Sister No problems noted. Sister No problems noted. Sister No problems noted. Son No problems noted. Son No problems noted. Daughter No problems noted. Social History Housing: Apartment Alcohol intake: current Alcohol intake frequency: does not drink Patient Tobacco Use Status: Never used Tobacco e-Cigarette/Vaping Use: Never Used service: No Current occupational status: employed Cognitive needs: No Hearing needs: No Vision needs: No Female Reproductive History Menstrual Age of Menarche: 11 Questionnaire PHQ-9 Over the last 2 weeks, how often have you been bothered by any of the following problems? 1. Little interest or pleasure in doing things: not at all 2. Feeling down, depressed, or hopeless: not at all 3. Trouble falling or staying asleep, or sleeping too much: not at all 4. Feeling tired or having little energy: not at all 5. Poor appetite or overeating: not at all 6. Feeling bad about yourself - or that you are a failure or have let yourself or your family down: not at all 7. Trouble concentrating on things, such as reading the newspaper or watching television: not at all 8. Moving or speaking so slowly that other people could have noticed. Or the opposite - being so fidgety or restless that you have been moving around a lot more than usual: not at all 9. Thoughts that you would be better off or of hurting yourself in some way: not at all Total score: 0 Depression Screening Interpretation: Negative Depression Screening Done: Yes 53477 - PHQ-9 Billing: Yes Source: Developed by Drs. Farhad Gusman, Nelly Champagne, Stanley Miranda and colleagues, with an educational tatum from [employer]. Thrive Questionnaire Date Thrive assessed: 07/29/25 I am a: Patient What is your living situation today?: I have a steady place to live Within the past 12 months, did the food you bought not last and you didn't have the money to get more?: Sometimes True Within the past 12 months, did you worry whether your food would run out before you got money to buy more?: Sometimes True Do you have trouble paying for medicines?: Yes Do you have trouble getting transportation to medical appointments?: No Do you have trouble paying your heating and electricity bill?: Yes Do you have trouble taking care of your child, family member or friend?: No Do you have trouble with day-to-day activities such as bathing, preparing meals, shopping, managing finances, etc.?: No Are you currently unemployed and looking for a job?: No Are you interested in more education?: No Please select the resources that you would like help with: None Currently or been in a relationship where the following occur: No concerns reported THRIVE Score: 3 AUDIT C Alcohol Use Questionnaire (AUDIT-C) 1. How often do you have a drink containing alcohol?: Never 2. How many drinks containing alcohol do you have on a typical day when you are drinking?: 1 or 2 3. How often do you have six or more drinks on one occasion?: Never Total Score: 0 MARLEEN-7 AMB Questionnaire MARLEEN-7 Date MARLEEN - 7 assessed: 08/05/25 Feeling nervous, anxious, or on edge: 0 = Not at all Not being able to stop or control worryin = Not at all Worrying too much about different things: 0 = Not at all Trouble relaxin = Not at all Being so restless that it is hard to sit still: 0 = Not at all Becoming easily annoyed or irritable: 0 = Not at all Feeling afraid as if something awful might happen: 0 = Not at all Total MARLEEN-7 score (0-4 normal; 5-9 mild; 10-14 moderate; 15-21 severe): 0 Source: Developed by Drs. Farhad Gusman, Nelly Champagne, Stanley Miranda and colleagues, with an educational tatum from [employer]. MARLEEN-7 Assessment Billing MARLEEN-7 Assessment Tool: MARLEEN-7 Assessment 04662 Physical exam (Primary Care) Vital Signs: Last Vital Signs Temp 98.1 F 08/05/25 08:00 Pulse 63 08/05/25 08:00 Resp 16 08/05/25 08:00 BP 100/64 08/05/25 08:00 Pulse Ox 95 08/05/25 08:00 BMI result Body Mass Index 42.9 Tobacco/Smoking Status: Tobacco use Status Tobacco use date assessed 08/05/25 08/05/25 08:05 Patient Tobacco Use Status Never used Tobacco 08/05/25 08:05 e-Cigarette/Vaping Use Never Used 08/05/25 08:05 PHQ-9: PHQ-9 Score PHQ-9: Total score 0 08/05/25 09:06 Depression Screening Interpretation: Negative Thrive Assessment: Date of Thrive Assessment Date Thrive assessed 07/29/25 08/05/25 08:05 Currently or been in a relationship where the following occur: No concerns reported Coding Level of Care Code Est Pt Level 3 (76961) Est Pt Prev Care 40-64y(00494) Diagnoses Encounter for general adult medical examination with abnormal findings Z00.01 Varicose veins of bilateral lower extremities with pain I83.813 Ulcerative colitis without complications, unspecified location K51.90 Digestive disease complication type: without complication Ulcerative colitis location: unspecified ulcerative colitis location Morbid obesity due to excess calories E66.01 Vitamin D deficiency E55.9 Elevated fasting blood sugar R73.01 Hidradenitis suppurativa L73.2 Additional Codes MARLEEN-7 Assessment Billing - MARLEEN-7 Assessment Tool: MARLEEN-7 Assessment [id number] ([id number]) PHQ-9 - 01768 - PHQ-9 Billing: Yes ([id number]) Assessment & Plan Assessment & Plan (1) Encounter for general adult medical examination with abnormal findings: Code(s): Z00.01 - Encounter for general adult medical examination with abnormal findings Category: Medical (2) Varicose veins of bilateral lower extremities with pain: Code(s): I83.813 - Varicose veins of bilateral lower extremities with pain Category: Medical (3) Ulcerative colitis: Code(s): K51.90 - Ulcerative colitis, unspecified, without complications Category: Medical Qualifiers: Digestive disease complication type: without complication Ulcerative colitis location: unspecified ulcerative colitis location Qualified Code(s): K51.90 - Ulcerative colitis, unspecified, without complications (4) Morbid obesity due to excess calories: Code(s): E66.01 - Morbid (severe) obesity due to excess calories Category: Medical (5) Vitamin D deficiency: Code(s): E55.9 - Vitamin D deficiency, unspecified Category: Medical (6) Elevated fasting blood sugar: Code(s): R73.01 - Impaired fasting glucose Category: Medical (7) Hidradenitis suppurativa: Code(s): L73.2 - Hidradenitis suppurativa Category: Medical Plan History of Present Illness The patient is a 40-year-old female presenting with follow-up for weight management, management of ulcerative colitis, and evaluation of varicose veins. Obesity, Morbid: - The patient has a history of morbid obesity with a BMI of 42.9. - The patient is currently trying to lose weight. - Weight management was discussed as a primary reason for this visit. Ulcerative Colitis: - The patient is established with gastroenterology. - The patient is receiving Vedolizumab (referred to as Metivial in the conversation) intravenously every eight weeks. - Currently asymptomatic with the condition and reports symptoms as awesome. Varicose Veins: - The patient reports recurrence of varicose veins in both legs, with the left leg worse. - Previous surgical intervention for varicose veins was done twice. - Residual varicosities and symptoms of previous interventions with blood clots in superficial veins were noted. State: - The patient had a baby in 2022 at [facility]. General Health Maintenance: - Last mammogram was in August of the previous year, and she has an appointment scheduled for this year. - Patient had her last OBGYN visit at [facility]. - Influenza and pertussis vaccines were administered. Medical History: - Obesity, Morbid - Hidradenitis Suppurativa - Hemorrhoids - Major Depressive Disorder, Mild - Prediabetes - Lactose Intolerance - Ulcerative Colitis - State Surgical History: - Surgical removal of varicose veins, two procedures performed historically. Social History: - Mother of four children, the youngest is two years old. - Engages in activities with children, such as [employer] events. 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 Health Maintenance - Colonoscopy was last completed in July of the previous year. - Complete Blood Count and metabolic profile done in July of the previous year revealed no anemia. - Patient is taking Vitamin D supplementation. - Influenza and pertussis vaccines received. 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 Patient Instructions - Schedule appointments for fasting labs tomorrow morning. - Continue with Vitamin D supplementation, pending lab results. - Schedule a follow-up with a weight management clinic. - Contact OBGYN for future appointments and health maintenance. - Get evaluated for recurrent varicose veins symptoms again. call your vascular specialist . Orders: Orders Lipid Panel 10/24/25 E55.9 - Vitamin D deficiency, unspecified, E66.01 - Morbid (severe) obesity due to excess calories, I83.813 - Varicose veins of bilateral lower extremities with pain, K51.90 - Ulcerative colitis, unspecified, without complications, L73.2 - Hidradenitis suppurativa, R73.01 - Impaired fasting glucose, Z00.01 - Encounter for general adult medical examination with abnormal findings Vitamin D 25-OH (D2 and D3) 08/05/25 E55.9 - Vitamin D deficiency, unspecified, E66.01 - Morbid (severe) obesity due to excess calories, I83.813 - Varicose veins of bilateral lower extremities with pain, K51.90 - Ulcerative colitis, unspecified, without complications, L73.2 - Hidradenitis suppurativa, R73.01 - Impaired fasting glucose, Z00.01 - Encounter for general adult medical examination with abnormal findings Vitamin B12 08/05/25 E55.9 - Vitamin D deficiency, unspecified, E66.01 - Morbid (severe) obesity due to excess calories, I83.813 - Varicose veins of bilateral lower extremities with pain, K51.90 - Ulcerative colitis, unspecified, without complications, L73.2 - Hidradenitis suppurativa, R73.01 - Impaired fasting glucose, Z00.01 - Encounter for general adult medical examination with abnormal findings Complete Blood Count Auto Diff 08/05/25 E55.9 - Vitamin D deficiency, unspecified, E66.01 - Morbid (severe) obesity due to excess calories, I83.813 - Varicose veins of bilateral lower extremities with pain, K51.90 - Ulcerative colitis, unspecified, without complications, L73.2 - Hidradenitis suppurativa, R73.01 - Impaired fasting glucose, Z00.01 - Encounter for general adult medical examination with abnormal findings Comprehensive Arnold. Panel Fast 08/05/25 E55.9 - Vitamin D deficiency, unspecified, E66.01 - Morbid (severe) obesity due to excess calories, I83.813 - Varicose veins of bilateral lower extremities with pain, K51.90 - Ulcerative colitis, unspecified, without complications, L73.2 - Hidradenitis suppurativa, R73.01 - Impaired fasting glucose, Z00.01 - Encounter for general adult medical examination with abnormal findings Hemoglobin A1c 08/05/25 E55.9 - Vitamin D deficiency, unspecified, E66.01 - Morbid (severe) obesity due to excess calories, I83.813 - Varicose veins of bilateral lower extremities with pain, K51.90 - Ulcerative colitis, unspecified, without complications, L73.2 - Hidradenitis suppurativa, R73.01 - Impaired fasting glucose, Z00.01 - Encounter for general adult medical examination with abnormal findings TSH reflex Free T4 08/05/25 E55.9 - Vitamin D deficiency, unspecified, E66.01 - Morbid (severe) obesity due to excess calories, I83.813 - Varicose veins of bilateral lower extremities with pain, K51.90 - Ulcerative colitis, unspecified, without complications, L73.2 - Hidradenitis suppurativa, R73.01 - Impaired fasting glucose, Z00.01 - Encounter for general adult medical examination with abnormal findings Ferritin 08/05/25 E55.9 - Vitamin D deficiency, unspecified, E66.01 - Morbid (severe) obesity due to excess calories, I83.813 - Varicose veins of bilateral lower extremities with pain, K51.90 - Ulcerative colitis, unspecified, without complications, L73.2 - Hidradenitis suppurativa, R73.01 - Impaired fasting glucose, Z00.01 - Encounter for general adult medical examination with abnormal findings Referrals Bariatric Surgery Referral E66.01 - Morbid (severe) obesity due to excess calories Vascular Surgery Referral I83.813 - Varicose veins of bilateral lower extrem ities with pain
== END 2025-08-05 08:45 | disposition home or self-care (01) ==
LOC: HO.HMCC 07:56
PROVIDERS: PCP Internal Medicine; Visit Provider Internal Medicine
DX: Z00.01 Encounter for general adult medical examination with abnormal findings (principal); K51.90 Ulcerative colitis, unspecified, without complications; E66.01 Morbid (severe) obesity due to excess calories; Z68.41 Body mass index [BMI] 40.0-44.9, adult; E55.9 Vitamin D deficiency, unspecified; I83.813 Varicose veins of bilateral lower extremities with pain; R73.01 Impaired fasting glucose; L73.2 Hidradenitis suppurativa

== ENCOUNTER → 2025-08-05 07:55 | Outpatient (BNVA) | payer BC, MEDICAID, SELFPAY | PROVIDERS: PCP Internal Medicine; Visit Provider Internal Medicine | DX: Z00.01 Encounter for general adult medical examination with abnormal findings (principal); K51.90 Ulcerative colitis, unspecified, without complications; E66.01 Morbid (severe) obesity due to excess calories; I83.813 Varicose veins of bilateral lower extremities with pain; E55.9 Vitamin D deficiency, unspecified; R73.01 Impaired fasting glucose; L73.2 Hidradenitis suppurativa; Z68.41 Body mass index [BMI] 40.0-44.9, adult | CPT/HCPCS: 96127 ==

== ENCOUNTER 2025-08-08 08:13 | Outpatient (REF) | payer BC, MEDICAID, SELFPAY ==
[2025-08-08 10:36] LABS: MANUAL DIFF FLAG NO
[2025-08-08 10:45] LABS: Hematocrit 38.7 % (37.0-47.0); Hemoglobin 12.7 g/dl (12.0-16.0); Imm Gran Abs Auto 0.04 X10*3/uL (0.00-0.03); Imm Gran Pct Auto 0.6 % (0.0-0.4); Lymphocytes Absolute Auto 1.7 X10*3/uL (1.2-4.9); Mean Corpuscular HGB Conc 32.8 g/dl (31.0-35.0); Mean Corpuscular Hemoglobin 27.8 pg (27.0-33.0); Mean Corpuscular Volume 84.7 fL (80.0-98.0); NRBC Abs Auto 0.000 X10*3/uL (0.0-0.012); NRBC Pct Auto 0.0 /100WBC (0.0-0.2); Platelet Count 309 X10*3/uL (160-400); Red Blood Count 4.57 X10*6/uL (4.20-5.50); White Blood Count 6.7 X10*3/uL (4.8-10.8)
[2025-08-08 11:08] LABS: Alanine Aminotransferase 19 U/L (0-31); Albumin Level 4.2 g/dL (3.5-5.0); Alkaline Phosphatase 69 U/L (39-117); Anion Gap 10 (12-20); Aspartate Amino Transferase 21 U/L (5-31); Blood Urea Nitrogen 14 mg/dL (9-16); Calcium 9.1 mg/dL (8.4-10.2); Carbon Dioxide 28 mmol/L (22-29); Chloride 105 mmol/L (96-108); Cholesterol 188 mg/dL (<200); Estimated Glomerular Filt Rate > 60; HDL Cholesterol 57 mg/dL (>40); Potassium 4.2 mmol/L (3.3-5.1); Sodium 139 mmol/L (135-145); Total Protein 6.8 g/dL (6.5-8.0); Triglycerides 67 mg/dL (<150)
[2025-08-08 11:23] LABS: Vitamin B12 548 pg/mL (200-900)
[2025-08-08 11:31] LABS: Ferritin 32 ng/mL (10-250)
[2025-08-13 13:29] LABS: Vitamin D 25-OH, D2 <4 ng/mL; Vitamin D 25-OH, D3 43 ng/mL; Vitamin D 25-OH, Total 43 ng/mL (30-100)
== END 2025-08-08 08:14 | disposition home or self-care (01) ==
LOC: HO.HMGCLDS 08:13
PROVIDERS: PCP Internal Medicine; Visit Provider Internal Medicine
DX: Z00.01 Encounter for general adult medical examination with abnormal findings (principal); K51.90 Ulcerative colitis, unspecified, without complications; E66.01 Morbid (severe) obesity due to excess calories; I83.813 Varicose veins of bilateral lower extremities with pain; E55.9 Vitamin D deficiency, unspecified; R73.01 Impaired fasting glucose; L73.2 Hidradenitis suppurativa; Z13.29 Encounter for screening for other suspected endocrine disorder
CPT/HCPCS: 36415; 80053; 80061; 82306; 82607; 82728; 83036; 84443; 85025

== ENCOUNTER 2025-09-03 08:15 | Outpatient (REF) | payer BC, MEDICAID, SELFPAY ==
--- OUTSIDE RECORDS SUMMARY | 2025-08-12 08:30 | XMS_ITS | Continuity of Care Document ---
Author Organization [facility] Address [address] [place] [address] [address] [place] [id number] Phone Care Team Providers Care Sustainability Coach Name Role Phone Santi ASHTON, BETHANY, Farhad MICHAELS Unavailable U navailable Procedures Procedure Date Office/Oupt E&M New Pt 45 Mins- CT & [place] Surgical Stock[facility] CVR Reveal Thigh High Duplex Scan-extrem Veins; Comp- CT & [place] Advance Directives Directive Yes / No Effective Date File Name No Information Encounters Encounter Description Practice Location Reason(s) For Visit Diagnoses Date Provider Providers Copied on Encounter Office/Oupt E&M New Pt 45 Mins- CT & [place] Anita For [facility], [address] [place] [address] Dr Hernandez [address], [id number], [place] tel:[phone] CVR - [place] - [facility] Varicose veins of bilateral lower extremities with other complicationsPa in in right lower legPain in left lower legLocalized edemaObesity, class 3Obesity, Class 3Venous insufficiency (chronic) (peripheral)Pru ritus, unspecified 5 Santi ASHTON, BETHANY, BRANDO Llamas. [address] [address], [facility] [place], [id number] , [place]. tel:[phone] Referring Provider: Cassie Retana MD, [address] [facility], [place], [address]. tel:[phone] Anita [facility], [address] [place] [address] [address], [place], [id number], tel:[phone] CVR - [place] Chronic venous hypertension (idiopathic) with other complications of bilateral lower extremity Santi ASHTON, BETHANY, BARNDO Llamas. [address] [facility], [address], [place], [id number] , [place]. tel:[phone] Referring Provider: Farhad Hancock MD, BETHANY, BRANDO, [address] [facility] [address], [place], [address] . tel:[phone] Family History Family Member Type Diagnosis Age At Onset No Information Payers Payer name Insurance type Covered republican ID Authordeboraha maribeth(s) [facility] MELISSA [id number] Social History Type Description Quantity Date Captured Comments Alcohol Use Details Unknown Caffeine Use Details Unknown Tobacco Use Status Current non-smoker Smoking Status Never Smoker Non-Smoking Tobacco Use Details : No Details Available : No Details Available Sex Female Vital Signs Date / Time: Height Weight BMI Pulse Rate Blood Pressure Temperature Respiratory Rate Body Surface Area Head Circumference Head Circ. Percentile Wt./Benjamin. Percentile BMI percentile Pulse Ox Inhaled Ox 99.790 kg (220.00 lbs) 41.5 9 kg/m eter (2) 123/87 mm[Hg] Chief Complaint And Reason For Visit No Information Reason For Referral Reason For Referral No Information Plan Of Treatment Date Type Action Status Goal Diet education completed Referral Ordered: Weight management: Referral to physician timeframe: 3 Months (related to Body mass index (BMI) 40.0-44.9, adult) ordered Appointment Kale Eaton BOOKED Appointment Kale Eaton BOOKED Appointment Kale Eaton BOOKED Appointment Kale Eaton BOOKED Appointment Kale Eaton BOOKED Appointment Kale Eaton BOOKED Appointment Kale Eaton BOOKED Appointment Kale Eaton BOOKED Appointment Kale Eaton BOOKED History Of Present Illness Encounter Date Complaint History Of Prese nt Illness No Information Functional Status Date Functional Assessmen t No Information Instructions Date Instruction Additional Infor erika Diet education Related to Body mass index (BMI) 40.0-44.9, adult Pre and post instruc tions reviewed and provided Related to Varicose veins of bilateral lower extremities with other complications Patient education booklet given Related to Varicose veins of bilateral lower extremities with other complications Lifestyle education Related to B nicole mass index (BMI) 40.0-44.9, adult Giving Encouragement to exercise Related to Body mass index (BMI) 40.0-44.9, adult Assessments Type Assessment Date assessment Venous insufficiency (chronic) ( peripheral) assessment Varicose veins of bi lateral lower extremities with other complications assessment Obesity, Class 3 assessment Obesity, class 3 assessment Localized edema assessment Pain in left lower leg 25 assessment Pain in right lower leg 025 assessment Pruritus, unspecified 5 Patient Care Teams Name Effective Dates (start - stop) Status Members No Information
--- NOTE | ~2025-09-03 | MM_ITS ---
EXAMINATION: MM SCREENING DIGITAL BREAST TOMOSYNTHESIS, BILATERAL CLINICAL INFORMATION: Screening. Asymptomatic. COMPARISON: August 28, 2024 TECHNIQUE: Digital breast tomosynthesis is performed in mediolateral oblique and craniocaudal views along with computer-aided detection (CAD). Synthesized 2D images are generated from the tomosynthesis. FINDINGS: BREAST COMPOSITION: There are scattered areas of fibroglandular density. BILATERAL BREASTS: No significant masses, suspicious calcifications or other abnormalities are seen in either breast. MM/MM tomosynthesis screening BI IMPRESSION: BILATERAL BREASTS: Negative, no mammographic evidence of malignancy. Normal interval follow-up is recommended in 12 months. ASSESSMENT: BI-RADS: Category 1: Negative RECOMMENDATION: Routine annual mammography screening. FOLLOW-UP: 1 year F/U This examination should not preclude the clinical evaluation of a suspicious palpable abnormality. This patient's information was entered into a reminder system with a target due date for their next mammogram. Electronically signed by: Celena Villanueva MD 09/05/2025 07:37 PM [facility]
== END 2025-09-03 08:16 | disposition home or self-care (01) ==
LOC: HO.MAMMO 08:15
PROVIDERS: PCP Internal Medicine; Visit Provider Internal Medicine
DX: Z12.31 Encounter for screening mammogram for malignant neoplasm of breast (principal)
CPT/HCPCS: 77063; 77067

== ENCOUNTER → 2025-09-03 08:30 | Outpatient (BNV) | payer BC, MEDICAID, SELFPAY | PROVIDERS: PCP Internal Medicine; Visit Provider Radiology Body Imaging | DX: Z12.31 Encounter for screening mammogram for malignant neoplasm of breast (principal) | CPT/HCPCS: 77063; 77067 ==

== ENCOUNTER 2025-10-10 08:25 | Outpatient (AMB) | payer BC, MEDICAID, SELFPAY ==
--- NOTE | 2025-10-10 11:15 | MHC.OFFVISWM ---
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: Details: Start time: 11.10am, End time: 11.46am ?I spent 31 minutes speaking with the patient on the phone plus an additional 5 minutes reviewing and updating records for a total of 36 minutes HPI Comments Details: Previous weight loss efforts: [facility] program: lost 29lbs which she maintains) Wakes up: 6.30am, Sleeps: 11pm Breakfast: most of the times at 9am (smart choice protein bar or boiled eggs) Lunch: skips Dinner: 6pm (meat and bananas) Snacks: 8pm peanuts) Exercise: Has home treadmill (no incline, tracks calories) Beverages: Coffee: (1-2 cup/d black), Tea: rarely, Soda/Juice: none, ETOH: none PFSH Medical History delivery delivered section wound complication Morbid obesity Colon cancer screening Ulcerative colitis Surgical History Hx of tubal ligation History of History of salpingectomy Hx of colonoscopy Family History Family/Other No problems noted. Maternal Aunt Colon cancer Mother Family history of early CAD Father No problems noted. Brother No problems noted. Brother No problems noted. Sister No problems noted. Sister No problems noted. Sister No problems noted. Son No problems noted. Son No problems noted. Daughter No problems noted. Social History Housing: Apartment Alcohol intake: current Alcohol intake frequency: does not drink Patient Tobacco Use Status: Never used Tobacco e-Cigarette/Vaping Use: Never Used service: No Current occupational status: employed Cognitive needs: No Hearing needs: No Vision needs: No Female Reproductive History Menstrual Age of Menarche: 11 Telehealth Telehealth Telehealth Platform: Telephone Location of provider rendering services: practice address Location of patient: address on file Patient Identification confirmed using: Name, : Yes Telehealth method: voice only Patient verbally consented to treatment: Yes Patient verbally consented to billing insurance company: Yes Patient informed of any privacy concerns related to visit: Yes Minutes spent on Phone/Video with Pt.: 36 Assessment & Plan Assessment & Plan (1) Morbid obesity: Code(s): E66.01 - Morbid (severe) obesity due to excess calories Category: Medical Plan: Dear Kale, It was a pleasure talking to you?today. This is the summary of what we discussed today: ?1. As we discussed, based on your present BMI you are approximately 115lbs overweight. In my opinion, for any weight loss strategy to be successful should have a high probability to help you lose at least 100lbs out of 115lbs of the extra weight you carry. ?We discussed in detail the available therapeutic options: ?1) our lifestyle intervention program that has an average weight loss of 10% in 3 months.?Some patients continue it for longer and have lost over 50lbs but this is not common. Our lifestyle program can be provided by me. I will provide you with a link to use the zayra if you choose to do so. We use protein shakes and protein bars to replace some of the meals of the day and cover your appetite better. We will decide together the exact combination ?2) Weight loss medications: Your insurance does not cover the new weight loss shots for the first 6 months in the program. We also discussed that you can self pay for the weight loss injections and the cost is $249 for the first month and $499 for any other month thereafter. These payments go to the drug company directly and not to us. As we discussed, this is not a [place] [facility] solution, as most patients put all the weight back once they are off the medication. There is also an option to get generic versions from compound pharmacies at cheaper rates but their efficacy and how they are manufactured is not that clear. I sent you the link. ?3) We also discussed about the lap sleeve gastrectomy. In my opinion this is the best option to solve your problem based on your situation. ??I emphasized the importance of close follow-up, adherence to instructions and good communication. The surgery does not replace the need to change your lifestlyle which is the cause of the obesity problem. The surgery provides the motivation to try again to change your lifestyle, it reduces the appetite and make the transition to a better lifestyle easier and doubles the amount of weight you would lose compared to doing the lifestyle change without the surgery. You will need to be on a liquid diet with protein shakes for 2 weeks before surgery to maximize weight loss and boost your nutritional status to recover better from surgery and also for the first two weeks after surgery to let the stomach heal before we introduce other foods. After the first 2 weeks we will introduce protein bars and soft foods like scrambled eggs, cottage cheese and yogurt and after the 6th week will introduce meat, fish and cooked vegetables in small amounts. Over time you should be able to eat everything in small amounts. Side effects like nausea, vomiting, heartburn or abdominal pain are not common in the practice unless you are not following in the practice. This operation requires lifetime commitment to following in our practice and communication with me. You will much less weight and experience side effects if you don?t communicate or not following in the practice. Complications are rare and in our practice is about 1/10 of the national average. 4) Very Important: We do extensive research in this practice. In very recent research we did, we found that patients who did the lifestyle program without medications followed by weight loss surgery, lost twice as much as they would lose if they used the shots for the same period of time and with the two groups being completely matched in terms of demographics and starting weights. Another research study we did found that when we compared patients who did our lifestyle program without or with the weight loss shots, they lost the same weight but they did not lose any muscle mass. The patients who used the shots lost about 3% of their muscle mass in 3 months which translates to 5-15lbs of actual muscle mass depending on each patient's initial weight. That's not good because it makes you frail and weak and reduces your metabolism. In another research study we did, we found that losing 10-20% of your initial weight before the weight loss surgery, followed by surgery at the lowest possible weight, gives you a significant boost in rat exterminator weight loss 6 years or more after surgery, that makes a difference in the long-term success. Preoperative weight loss is not commonly used by many practices especially at this magnitude, but it is our philosophy and makes a huge difference. 5) The patient wants to proceed with the lifestyle intervention plus Tirzepatide through a [facility] 1.Nutritional counseling. Start with one premade PREMIER protein (buy at [employer] or [employer]) shake (mix 4oz of Premier mixed with 4oz low fat unsweetened almond milk each) at 7am-9am, one Smart Choice IQ protein bar at 10am-12pm, another premade PREMIER protein shake (mix 4oz of Premier mixed with 4oz low fat unsweetened almond milk each) at 1pm-3pm, another Smart Choice IQ protein bar at 4pm-6pm,? dinner at 7pm (8 forks of protein and 8 forks of salad/vegetables) and one more Smart Choice IQ protein bar at 9pm-11pm So you do 2 protein shakes, 3 protein bars and one meal per day. Meal to include lean meat (beef, fish, pork, turkey, chicken), or persian yogurt, or egg whites, or beans with a salad with olive oil and fruits (berries, pears, apples, kiwi). Avoid salt, breads, potatoes, rice, pasta, desserts. 2. You need the medication Tirzepatide from the [facility] pharmacy. Please let me know when you receive it. Common side effects include nausea, vomiting, constipation, diarrhea, abdominal pain. Please let me know if you develop any of these symptoms. 3. Each shake would be drunk slowly, like coffee in a period of 2 hours. 4. Cut each bar in 4 pieces and eat each piece in 30min ?to make each bar last 2 hours. 5. I emphasized the importance of measuring accurately the food portion and measure it when serving the food in plate 6. The meal portions include 8 full-size forks of meat and 8 full-size forks of salad. You always eat the meat portion but you can replace up to 4 forks for salad/vegetables with rice, potatoes or pasta, or a fruit ?if you like. The less you do it the better weight loss will be. 7. One full-size fork is what it can be scooped on the fork without falling aside and not what can be bit with the fork. Use regular forks like those you find in a typical restaurant. 8.? Please buy the body composition scale we discussed and send me weight measurements as soon as possible and then once a week. Always include your diet and exercise plan. 9. Start treadmill with a speed of 3.0. Increase speed by 0.5mph every 3 min to a max speed of 6.0 mph stay 3min at 6.0 and then return to 3.0mph and repeat same steps until calorie goal is met. Goal is to burn 2000 calories per week on exercise, which means either 300 calories daily. 10.?It is important of avoiding and for as long as you are on the Tirzepatide. 11. Goal is to lose at least 1.5-2lbs per week 12. Goal to lose at least 10% of your weight, which is about 27lbs. Minimum weight goal: 200lbs 13. Please follow the diet plan exactly without any change. If you don't like something about the plan or you feel hungry you need to communicate with me so I can help you revise the plan. You should not change the plan yourself
== END 2025-10-10 11:47 | disposition home or self-care (01) ==
LOC: HO.HBS 08:25
PROVIDERS: PCP Internal Medicine; Visit Provider Surgery
DX: E66.01 Morbid (severe) obesity due to excess calories (principal); Z68.41 Body mass index [BMI] 40.0-44.9, adult
CPT/HCPCS: 99203